=== PATIENT | male | born 1955 | race Caucasian/White ===

== ENCOUNTER 2025-04-16 07:41 | Emergency (ER) | payer OTHER ==
--- OUTSIDE RECORDS SUMMARY | 2025-04-16 07:53 | XMS REPORT | Continuity of Care Document ---
Author Name Unknown Address [address] [facility] [address] [place] [address] [facility] [place] Address [address] [facility] [address] [place] [address] Care Team Providers Care [place]orman Name Role Phone Niya Haywood Primary Care Physician + [phone] NIYA MCHUGH Attending Clinician Unavailable Niya Haywood Attending Clinician [phone] Po, [facility] Main Attending Clinician Lacey Lira MD Attending Clinician [phone] LACEY ESTEVES Attending Clinician UnavailFABIOLA Medina Attending Clinician UnavailFABIOLA Medina Attending Clinician UnavailNas Sneed PA-C Attending Clinician [phone] NAS PETERSEN Attending Clinician Unavailable FERCHO LANG Attending Clinician Unavailable Fercho Lang DO Attending Clinician [phone] Fabiola Key MD Attending Clinician [phone] CHAD PITTMAN Attending Clinician Unavail CHAD Chapman Attending Clinician Unavail Chad Chapman MD Attending Clinician [phone] Niya Haywood Attending Clinician [phone] AUDREY FOY Attending Clinician Unavailable Moon MD, Wondiful A Attending Clinician [phone] RADIOLOGY Attending Clinician Unavailable Radiology Attending Clinician Unavailable YISSEL TAMAYO Attending Clinician Unavailab YISSEL Jose Attending Clinician Unavailab KOFI Concepcion Attending Clinician Unavailable Kofi Deras Attending Clinician [phone] Doctor Unassigned, [place] Attending Clinician U navailable WILFRIDO MUSTAFA Attending Clinician Unavaila ble Lab, Ang - Db Attending Clinician Unavailable Asia Castillo MA Attending Clinician Unavail able DOROTA KIM Attending Clinician Unavailable Riki Buckner Attending Clinician [phone] Dorota Kim MD Attending Clinician [phone] Lab, [facility] Pob I Attending Clinician Unavailab julio cesar Brown_P Attending Clinician Unavailable Conchis Gregory Attending Clinician [phone] Unique Driscoll MD Attending Clinician [phone] [facility] Attending Clinician Unavaila Peter Pena Attending Clinician [phone] FERCHO LANG Admitting Clinician Unavailable ALICIA JHAVERI Admitting Clinician Unavailable KOFI HERNANDEZ Admitting Clinician Unavailable WILFRIDO MUSTAFA Admitting Clinician Unavaila marti Brown_P Admitting Clinician Unavailable Payers Payer Name Policy Type Policy Number Effective Date Expirati on Date Source [facility] DUAL COMP HMO-POS D SNP [id number] 2022 00:00:[address] [facility] [id number] 2024 00:00:00 [employer] [id number] 2022 00:00:00 2022 00:00:00 [facility] [id number] 2022 00:00:00 Problems Condition Name Condition Details Condition Category Status Onset Date Resolution Date Last Treatment Date Treating Clinician Comments Source Bilateral edema of lower extremity Bilateral edema of lower extremity Disease Active 2023-09 1 00:00: 00 [facility] COPD (chronic obstructiv e pulmonary disease) COPD (chronic obstructiv e pulmonary disease) Disease Active 11-26 00:00: 00 [facility] Muscle cramps Muscle cramps Disease Active 11-26 00:00: 00 [facility] Vertigo Vertigo Disease Active 05-30 00:00: 00 [facility] Tremor Tremor Disease Active 05-30 00:00: 00 [facility] Decreased hearing, left Decreased hearing, left Disease Active 05-30 00:00: 00 [facility] Venous reflux, left lower extremity Venous reflux, left lower extremity Disease Active 03-20 00:00: 00 [facility] Anemia, unspecifie d type Anemia, unspecifie d type Disease Active 05-23 00:00: 00 [facility] Leukopenia , unspecifie d type Leukopenia , unspecifie d type Disease Active 05-23 00:00: 00 [facility] Memory disturbanc e Memory disturbanc e Disease Active 05-08 00:00: 00 [facility] Neck pain Neck pain Disease Active 12-11 00:00: 00 [facility] DDD (degenerat justina disc disease), cervical DDD (degenerat justina disc disease), cervical Disease Active 12-11 00:00: 00 [facility] Cervical spine arthritis Cervical spine arthritis Disease Active 12-11 00:00: 00 [facility] Arthritis Arthritis Disease Active 10-07 00:00: 00 [facility] Primary hypothyroi dism Primary hypothyroi dism Disease Active 2015-09 00:00: 00 [facility] Myalgia Myalgia Disease Active 2015-09 00:00: 00 [facility] Vitamin B12 deficiency Vitamin B12 deficiency Disease Resolve d 05-23 00:00: 00 2019-05-23 00:00:00 2019-05-23 22:01:47 Overview: Formattin g of this note might be different from the original. 05/29/2021 : REFUSES TO TAKE B12 SUPPLEMEN TATION [facility] History of thyrotoxic osis History of thyrotoxic osis Disease Resolve d 01-15 00:00: 00 2017-10-19 00:00:00 2022-03-24 00:24:28 [facility] Mass of left side of neck Mass of left side of neck Disease Resolve d 5 00:00: 00 2017-10-19 00:00:00 2017-10-19 17:08:40 [facility] Allergies, Adverse Reactions, Alerts Allergy Name Allergy Type Status Severity Reaction(s) Onset Date Inactive Date Treating Clinician Comments Source NO KNOWN ALLERGIE S Drug Class Active [facility] Family History Family Member Diagnosis Comments Start Date Stop Date Sourc e Other Other - see comments [facility] Social History Social Habit Start Date Stop Date Quantity Comments Source Sexual orientation [facility] History of tobacco use Current smoker [facility] Alcoholic beverage intake 2024-12-01 00:00:00 2024-12-01 00:00:00 Current non-drinker of alcohol (finding) [facility] History of Social function 2024-08-11 00:00:00 2024-08-11 00:00:00 [facility] Alcohol intake 2023-10-17 00:00:00 2023-10-17 00:00:00 Current non-drinker of alcohol (finding) [facility] Exposure to SARS-CoV-2 (event) 2022-12-28 00:00:00 2023-01-07 09:58:00 Not sure [facility] Tobacco use and exposure 2022-05-29 00:00:00 2022-05-29 00:00:00 Former smokeless tobacco user [facility] Tobacco Comment 2022-05-29 00:00:00 2022-05-29 00:00:00 only in childhood, quit at age 7yo [facility] Sex assigned at 1955 00:00:00 1955 00:00:00 [facility] Smoking Status Start Date Stop Date Source Ex-smoker 2022-05-29 00:00:00 2022-05-29 00:00:00 [facility] Medications Ordered Medication Name Filled Medication Name Start Date Stop Date Current Medication? Ordering Clinician Indication Dosage Frequency Signature (SIG) Comments Components Source albuterol-i pratropium (COMBIVENT RESPIMAT) 20-100 mcg/actuati on inhaler 2023-09 00:00: 00 Yes [id number] 1{puff} Inhale 1 Puff 4 (four) times daily as needed for Wheezing or Shortness of Breath. [facility] albuterol 2.5 mg /3 mL (0.083 %) nebulizer solution 2023-09 00:00: 00 Yes [id number] 2.5mg Inhale 3 mL every 4 (four) hours as needed for Wheezing or Shortness of Breath. [facility] cyclobenzap rine 10 mg tablet 2023-09 0 00:00: 00 Yes 10mg Take 1 tablet by mouth in the morning. [facility] ioflupane I 123 (DATSCAN) injection 5.2 millicurie 11-04 15:15: 00 11-04 15:15 :00 No [id number] 5.2mCi 5.2 millicurie , Intravenou s, ONCE, 1 dose, On Fri11/04/23 at 0915, Routine [facility] potassium iodide (SSKI) 1 gram/mL solution 0.1 mL 11-04 14:15: 00 11-04 14:10 :00 No [id number] 100mg 0.1 mL (100 mg), Oral, ONCE NOW, 1 dose, On Fri11/04/23 at 0815, Routine [facility] QUEtiapine (SEROQUEL) 25 mg tablet 2021-09 018 00:00: 00 Yes [id number] 25mg Take 1 tablet by mouth in the morning and 1 tablet in the evening. After 1 week take 2 PO BID. [facility] cyclobenzap rine 10 mg tablet 05-01 00:00: 00 05-29 00:00 :00 No [facility] IRON ORAL 3 09:04: 19 Yes Take by mouth. [facility] albuterol 2.5 mg /3 mL (0.083 %) nebulizer solution 11-26 00:00: 00 08-11 00:00 :00 No [id number] 2.5mg Inhale 3 mL every 4 (four) hours as needed for Wheezing or Shortness of Breath. [facility] albuterol-i pratropium (COMBIVENT RESPIMAT) 20-100 mcg/actuati on inhaler 11-26 00:00: 00 08-11 00:00 :00 No [id number] 1{puff} Inhale 1 Puff 4 (four) times daily as needed for Wheezing or Shortness of Breath. [facility] meclizine 12.5 mg tablet 05-30 00:00: 00 Yes [id number] 12.5mg Take 1 tablet by mouth 3 (three) times daily as needed for Dizziness. [facility] ibuprofen 600 mg tablet 01-22 00:00: 00 08-11 00:00 :00 No [facility] aspirin 81 mg chewable tablet 05-13 13:56: 56 Yes 81mg Take 1 tablet by mouth in the morning. [facility] HYDROcodone -acetaminop hen 10-325 mg tablet 05-13 13:56: 56 Yes 1{tbl} Take 1 tablet by mouth every 6 (six) hours as needed. [facility] losartan 100 mg tablet 05-13 13:56: 56 08-11 00:00 :00 No 100mg Take 1 tablet by mouth in the morning. [facility] Immunizations Ordered Immunization Name Filled Immunization Name Date Status Comments Source Pneumococcal 20 Conjugate, PCV20 (Prevnar 20) 2024-12-01 00:00:00 Completed [facility] Influenza, adjuvanted, trivalent, PF (FLUAD) 2024-06-11 00:00:00 Completed [facility] Influenza Virus Vaccine 2023-12-30 00:00:00 Completed [facility] SARS-COV-2 COVID-19 MODERNA 12+ YRS VACCINE 2023-12-30 00:00:00 Completed [facility] Pneumococcal Polysaccharide, PPSV23 (PNEUMOVAX) 2023-12-30 00:00:00 Completed [facility] TD, NOS 2023-12-30 00:00:00 Completed [facility] Influenza Virus Vaccine 2023-11-04 07:43:04 Completed [facility] SARS-COV-2 COVID-19 MODERNA 12+ YRS VACCINE 2023-11-04 07:43:04 Completed [facility] Pneumococcal Polysaccharide, PPSV23 (PNEUMOVAX) 2023-11-04 07:43:04 Completed [facility] TD, NOS 2023-11-04 07:43:04 Completed [facility] Influenza Virus Vaccine 2023-11-04 07:42:54 Completed [facility] SARS-COV-2 COVID-19 MODERNA 12+ YRS VACCINE 2023-11-04 07:42:54 Completed [facility] Pneumococcal Polysaccharide, PPSV23 (PNEUMOVAX) 2023-11-04 07:42:54 Completed [facility] TD, NOS 2023-11-04 07:42:54 Completed [facility] Influenza Virus Vaccine 2023-11-04 07:42:44 Completed [facility] SARS-COV-2 COVID-19 MODERNA 12+ YRS VACCINE 2023-11-04 07:42:44 Completed [facility] Pneumococcal Polysaccharide, PPSV23 (PNEUMOVAX) 2023-11-04 07:42:44 Completed [facility] TD, NOS 2023-11-04 07:42:44 Completed [facility] Influenza Virus Vaccine 2023-10-17 08:00:00 Completed [facility] SARS-COV-2 COVID-19 MODERNA 12+ YRS VACCINE 2023-10-17 08:00:00 Completed [facility] Pneumococcal Polysaccharide, PPSV23 (PNEUMOVAX) 2023-10-17 08:00:00 Completed [facility] TD, NOS 2023-10-17 08:00:00 Completed [facility] Influenza Virus Vaccine 2023-10-15 00:00:00 Completed [facility] SARS-COV-2 COVID-19 MODERNA 12+ YRS VACCINE 2023-10-15 00:00:00 Completed [facility] Pneumococcal Polysaccharide, PPSV23 (PNEUMOVAX) 2023-10-15 00:00:00 Completed [facility] TD, NOS 2023-10-15 00:00:00 Completed [facility] Influenza Virus Vaccine 2023-09-03 07:00:00 Completed [facility] Pneumococcal Polysaccharide, PPSV23 (PNEUMOVAX) 2023-09-03 07:00:00 Completed [facility] TD, NOS 2023-09-03 07:00:00 Completed [facility] SARS-COV-2 COVID-19 MODERNA 12+ YRS VACCINE 2023-09-03 07:00:00 Completed [facility] Influenza Virus Vaccine 2023-09-03 00:00:00 Completed [facility] SARS-COV-2 COVID-19 MODERNA 12+ YRS VACCINE 2023-09-03 00:00:00 Completed [facility] Pneumococcal Polysaccharide, PPSV23 (PNEUMOVAX) 2023-09-03 00:00:00 Completed [facility] TD, NOS 2023-09-03 00:00:00 Completed [facility] Influenza Virus Vaccine 2023-08-08 00:00:00 Completed [facility] SARS-COV-2 COVID-19 MODERNA 12+ YRS VACCINE 2023-08-08 00:00:00 Completed [facility] Pneumococcal Polysaccharide, PPSV23 (PNEUMOVAX) 2023-08-08 00:00:00 Completed [facility] TD, NOS 2023-08-08 00:00:00 Completed [facility] Td 2022-06-15 00:00:00 Completed [facility] TD, NOS 2022-06-15 00:00:00 Completed [facility] Td 2022-06-15 00:00:00 Completed [facility] TD, NOS 2022-06-15 00:00:00 Completed [facility] SARS-COV-2 COVID-19 VACCINE - (MODERNA) 2022-01-29 00:00:00 Completed Pneumococcal Polysaccharide, PPSV23 (PNEUMOVAX) 2021-11-26 00:00:00 Completed [facility] Pneumococcal Polysaccharide, PPSV23 (PNEUMOVAX) 2021-11-26 00:00:00 Completed [facility] Pneumococcal Polysaccharide, PPSV23 (PNEUMOVAX) 2021-11-26 00:00:00 Completed [facility] Pneumococcal Polysaccharide, PPSV23 (PNEUMOVAX) 2021-11-26 00:00:00 Completed [facility] Pneumococcal Polysaccharide, PPSV23 (PNEUMOVAX) 2021-11-26 00:00:00 Completed [facility] Pneumococcal Polysaccharide, PPSV23 (PNEUMOVAX) 2021-11-26 00:00:00 Completed [facility] Pneumococcal Polysaccharide, PPSV23 (PNEUMOVAX) 2021-11-26 00:00:00 Completed [facility] Pneumococcal Polysaccharide, PPSV23 (PNEUMOVAX) 2021-11-26 00:00:00 Completed [facility] SARS-COV-2 COVID-19 MODERNA 12+ YRS VACCINE 2021-07-11 00:00:00 Completed [facility] SARS-COV-2 COVID-19 MODERNA 12+ YRS VACCINE 2021-07-11 00:00:00 Completed [facility] SARS-COV-2 COVID-19 MODERNA 12+ YRS VACCINE 2021-07-11 00:00:00 Completed [facility] SARS-COV-2 COVID-19 MODERNA 12+ YRS VACCINE 2021-07-11 00:00:00 Completed [facility] SARS-COV-2 COVID-19 MODERNA 12+ YRS VACCINE 2021-07-11 00:00:00 Completed [facility] SARS-COV-2 COVID-19 MODERNA 12+ YRS VACCINE 2021-07-11 00:00:00 Completed [facility] SARS-COV-2 COVID-19 MODERNA 12+ YRS VACCINE 2021-07-11 00:00:00 Completed [facility] SARS-COV-2 COVID-19 MODERNA 12+ YRS VACCINE 2021-07-11 00:00:00 Completed [facility] SARS-COV-2 COVID-19 MODERNA 12+ YRS VACCINE 2020-12-20 00:00:00 Completed [facility] SARS-COV-2 COVID-19 MODERNA 12+ YRS VACCINE 2020-12-20 00:00:00 Completed [facility] SARS-COV-2 COVID-19 MODERNA 12+ YRS VACCINE 2020-12-20 00:00:00 Completed [facility] SARS-COV-2 COVID-19 MODERNA 12+ YRS VACCINE 2020-12-20 00:00:00 Completed [facility] SARS-COV-2 COVID-19 MODERNA 12+ YRS VACCINE 2020-12-20 00:00:00 Completed [facility] SARS-COV-2 COVID-19 MODERNA 12+ YRS VACCINE 2020-12-20 00:00:00 Completed [facility] SARS-COV-2 COVID-19 MODERNA 12+ YRS VACCINE 2020-12-20 00:00:00 Completed [facility] SARS-COV-2 COVID-19 MODERNA 12+ YRS VACCINE 2020-12-20 00:00:00 Completed [facility] SARS-COV-2 COVID-19 MODERNA 12+ YRS VACCINE 2020-11-24 00:00:00 Completed [facility] SARS-COV-2 COVID-19 MODERNA 12+ YRS VACCINE 2020-11-24 00:00:00 Completed [facility] SARS-COV-2 COVID-19 MODERNA 12+ YRS VACCINE 2020-11-24 00:00:00 Completed [facility] SARS-COV-2 COVID-19 MODERNA 12+ YRS VACCINE 2020-11-24 00:00:00 Completed [facility] SARS-COV-2 COVID-19 MODERNA 12+ YRS VACCINE 2020-11-24 00:00:00 Completed [facility] SARS-COV-2 COVID-19 MODERNA 12+ YRS VACCINE 2020-11-24 00:00:00 Completed [facility] SARS-COV-2 COVID-19 MODERNA 12+ YRS VACCINE 2020-11-24 00:00:00 Completed [facility] SARS-COV-2 COVID-19 MODERNA 12+ YRS VACCINE 2020-11-24 00:00:00 Completed [facility] Influenza Virus Vaccine 2019-08-10 00:00:00 Completed [facility] Influenza Virus Vaccine 2019-08-10 00:00:00 Completed [facility] Influenza Virus Vaccine 2019-08-10 00:00:00 Completed [facility] Influenza Virus Vaccine 2019-08-10 00:00:00 Completed [facility] Influenza Virus Vaccine 2019-08-10 00:00:00 Completed [facility] Influenza Virus Vaccine 2019-08-10 00:00:00 Completed [facility] Influenza Virus Vaccine 2019-08-10 00:00:00 Completed [facility] Influenza Virus Vaccine 2019-08-10 00:00:00 Completed [facility] Vital Signs Vital Name Observation Time Observation Value Comments S teresa Systolic blood pressure 2024-12-01 12:51:00 123 mm[Hg] [facility] Diastolic blood pressure 2024-12-01 12:51:00 76 mm[Hg] [facility] Heart rate 2024-12-01 12:51:00 65 /min [facility] Body height 2024-12-01 12:51:00 182.9 cm [facility] Body weight 2024-12-01 12:51:00 71.895 kg [facility] BMI 2024-12-01 12:51:00 21.50 kg/m2 [facility] Oxygen saturation in Arterial blood by Pulse oximetry 2024-12-01 12:51:00 100 /min [facility] Systolic blood pressure 2024-08-11 21:23:00 134 mm[Hg] [facility] Diastolic blood pressure 2024-08-11 21:23:00 86 mm[Hg] [facility] Heart rate 2024-08-11 21:23:00 85 /min [facility] Respiratory rate 2024-08-11 21:23:00 18 /min [facility] Body height 2024-08-11 21:23:00 182.9 cm [facility] Body weight 2024-08-11 21:23:00 74.571 kg [facility] BMI 2024-08-11 21:23:00 22.30 kg/m2 [facility] Oxygen saturation in Arterial blood by Pulse oximetry 2024-08-11 21:23:00 99 /min [facility] Systolic blood pressure 2024-07-16 14:08:00 133 mm[Hg] [facility] Diastolic blood pressure 2024-07-16 14:08:00 96 mm[Hg] [facility] Heart rate 2024-07-16 14:08:00 74 /min [facility] Body temperature 2024-07-16 14:06:00 37.11 Tammy [facility] Body height 2024-07-16 14:06:00 182.9 cm [facility] 2024-07-16 14:06:00 71.986 kg [facility] BMI 2024-07-16 14:06:00 21.52 kg/m2 [facility] in Arterial blood by Pulse oximetry 2024-07-16 14:06:00 99 /min [facility] Systolic blood pressure 2024-06-25 13:03:00 138 mm[Hg] [facility] Diastolic blood pressure 2024-06-25 13:03:00 90 mm[Hg] [facility] Heart rate 2024-06-25 13:03:00 73 /min [facility] Body temperature 2024-06-25 13:03:00 37 Tammy [facility] Respiratory rate 2024-06-25 13:03:00 20 /min [facility] Body height 2024-06-25 13:03:00 182.9 cm [facility] Body weight 2024-06-25 13:03:00 71.215 kg [facility] BMI 2024-06-25 13:03:00 21.29 kg/m2 [facility] Oxygen saturation in Arterial blood by Pulse oximetry 2024-06-25 13:03:00 98 /min [facility] Systolic blood pressure 2024-06-11 20:57:00 122 mm[Hg] [facility] Diastolic blood pressure 2024-06-11 20:57:00 80 mm[Hg] [facility] Heart rate 2024-06-11 20:57:00 74 /min [facility] Body height 2024-06-11 20:57:00 182.9 cm [facility] Body weight 2024-06-11 20:57:00 73.936 kg [facility] BMI 2024-06-11 20:57:00 22.11 kg/m2 [facility] Oxygen saturation in Arterial blood by Pulse oximetry 2024-06-11 20:57:00 97 /min [facility] Systolic blood pressure 2023-10-17 14:08:00 109 mm[Hg] [facility] Diastolic blood pressure 2023-10-17 14:08:00 69 mm[Hg] [facility] Heart rate 2023-10-17 14:08:00 61 /min [facility] Body height 2023-10-17 14:08:00 182.9 cm [facility] Body weight 2023-10-17 14:08:00 70.262 kg [facility] BMI 2023-10-17 14:08:00 21.01 kg/m2 [facility] Systolic blood pressure 2022-06-15 14:28:32 131 mm[Hg] [facility] Diastolic blood pressure 2022-06-15 14:28:32 77 mm[Hg] [facility] Heart rate 2022-06-15 14:28:32 94 [facility] Body temperature 2022-06-15 14:28:32 36.5 Tammy [facility] Respiratory rate 2022-06-15 14:28:32 18 /min [facility] Body height 2022-06-15 14:01:00 182.9 cm [facility] Body weight 2022-06-15 14:01:00 72.576 kg [facility] BMI 2022-06-15 14:01:00 21.70 kg/m2 [facility] Oxygen saturation in Arterial blood by Pulse oximetry 2022-06-15 14:01:00 100 /min [facility] Systolic blood pressure 2022-05-29 13:04:00 114 mm[Hg] [facility] Diastolic blood pressure 2022-05-29 13:04:00 72 mm[Hg] [facility] Heart rate 2022-05-29 13:04:00 86 /min [facility] Body temperature 2022-05-29 13:04:00 36.44 Tammy [facility] Body height 2022-05-29 13:04:00 182.9 cm [facility] Body weight 2022-05-29 13:04:00 72.666 kg [facility] BMI 2022-05-29 13:04:00 21.73 kg/m2 [facility] Oxygen saturation in Arterial blood by Pulse oximetry 2022-05-29 13:04:00 99 /min [facility] Systolic blood pressure 2024-08-11 21:23:00 134 mm[Hg] [facility] Diastolic blood pressure 2024-08-11 21:23:00 86 mm[Hg] [facility] Heart rate 2024-08-11 21:23:00 85 /min [facility] Respiratory rate 2024-08-11 21:23:00 18 /min [facility] Body height 2024-08-11 21:23:00 182.9 cm [facility] Body weight 2024-08-11 21:23:00 74.571 kg [facility] BMI 2024-08-11 21:23:00 22.30 kg/m2 [facility] Oxygen saturation in Arterial blood by Pulse oximetry 2024-08-11 21:23:00 99 /min [facility] Body temperature 2024-07-16 14:06:00 37.11 Tammy [facility] Systolic blood pressure 2022-06-15 14:28:32 131 mm[Hg] [facility] Diastolic blood pressure 2022-06-15 14:28:32 77 mm[Hg] [facility] Heart rate 2022-06-15 14:28:32 94 /min [facility] Body temperature 2022-06-15 14:28:32 36.5 Tammy [facility] Respiratory rate 2022-06-15 14:28:32 18 /min [facility] Body height 2022-06-15 14:01:00 182.9 cm [facility] Body weight 2022-06-15 14:01:00 72.576 kg [facility] BMI 2022-06-15 14:01:00 21.70 kg/m2 [facility] Oxygen saturation in Arterial blood by Pulse oximetry 2022-06-15 14:01:00 100 /min [facility] Procedures Procedure Date / Time Performed Performing Clinician Source COMP. METABOLIC PANEL ([id number]) 2024-12-07 14:09:00 Aleyda Jhaverineem [facility] CBC WITH DIFF 2024-12-07 14:09:00 Benja Alicia [facility] PNEUMOCOCCAL 20 CONJUGATE (PREVNAR 20) VACCINE 2024-12-01 12:58:07 Niya Mchugh [facility] VENOUS REFLUX DUPLEX BILATERAL - BY VASCULAR LAB 2024-07-26 14:57:00 Rickey [facility] VENOUS REFLUX DUPLEX BILATERAL - BY VASCULAR LAB 2024-07-26 14:57:00 Rickey [facility] LAB COLOGUARD COLON CANCER SCREEN 2024-07-23 13:00:00 Niya Mchugh [facility] FLU VACC([id number]),65+YR,0.5 ML,IM,ADJUVANTED,TIV(FLUA D) 2024-06-11 21:05:20 Niya Mchugh [facility] NM BRAIN SPECT (DATSCAN) 2023-11-04 19:30:00 Chad Pittman [facility] NM BRAIN SPECT (DATSCAN) 2023-11-04 19:30:00 Chad Pittman [facility] NM BRAIN SPECT (DATSCAN) 2023-11-04 19:30:00 Chad Pittman [facility] XR FOOT 3+ VW RIGHT 2022-06-15 14:34:00 Kofi Hernandez [facility] XR FOOT 3+ VW RIGHT 2022-06-15 14:34:00 Kofi Hernandez [facility] NOTICE OF PRIVACY PRACTICES 2022-06-15 13:57:42 Doctor Unassigned, [place] [facility] NOTICE OF PRIVACY PRACTICES 2022-06-15 13:57:42 Doctor Unassigned, [place] [facility] CONSENT/REFUSAL FOR DIAGNOSIS AND TREATMENT 2022-06-15 13:53:21 Doctor Unassigned, [place] [facility] CONSENT/REFUSAL FOR DIAGNOSIS AND TREATMENT 2022-06-15 13:53:21 Doctor Unassigned, [place] [facility] AGREEMENTS AUTHORIZATIONS AND IRREVOCABLE ASSIGNMENTS (FORM 2001) 2022-06-15 05:01:00 Doctor Unassigned, [place] [facility] CONSENT/REFUSAL FOR DIAGNOSIS AND TREATMENT 2022-04-18 12:56:33 Doctor Unassigned, [place] [facility] ASSIGNMENT OF BENEFITS 2022-04-18 12:56:14 Docto r Unassigned, [place] [facility] FECAL IMMUNOCHEMICAL TEST 2019-05-19 12:00:00 Wilfrido Mustafa [facility] HCV ANTIBODY 2019-05-11 19:25:00 Wilfrido Mustafa [facility] Encounters Start Date/Time End Date/Time Encounter Type Admission Type Attending [facility] Facility Care Department Encounter ID Source 2025-04-12 00:00:00 2025-04-15 15:58:30 Telephone Niya Mchugh [facility] MED[facility] 1.2.840.114 350.1.13.10 4.2.7.2.686 [id number] [facility] 2025-04-06 11:00:00 2025-04-06 11:00:00 Outpatient NIYA [facility] [id number] [facility] 2025-04-01 13:00:00 2025-04-01 13:00:00 Outpatient NIYA [facility] [id number] [facility] 2025-03-29 00:00:00 2025-03-30 11:29:27 Telephone Niya Mchugh [facility] 1.2.840.114 350.1.13.10 4.2.7.2.686 [id number] [facility] 2024-12-16 00:00:00 2024-12-16 00:00:00 Outpatient R NIYA MCHUGH [facility] [id number] [facility] 2024-12-16 00:00:00 2024-12-16 00:00:00 Outpatient R NIYA MCHUGH [facility] [id number] [facility] 2024-12-07 09:15:00 2024-12-07 09:30:00 Radar Engineer Visit Pob, Adc Lab Main Lacey Esteves, [facility] Main [facility] 1.2.840.114 350.1.13.10 4.2.7.2.686 [id number] [facility] 2024-12-07 09:15:00 2024-12-07 09:15:00 Outpatient [facility] [id number] [facility] 2024-12-01 07:30:00 2024-12-01 08:09:52 Outpatient R NIYA MCHUGH [facility] [id number] [facility] 2024-12-01 07:30:00 2024-12-01 08:09:52 Office Visit Niya Mchugh [facility] MED[facility] OFF[facility] BUILD[facility] 1.2.840.114 350.1.13.10 4.2.7.2.686 [id number] [facility] 2024-10-22 08:00:00 2024-10-22 08:00:00 Outpatient FABIOLA PERAZA [facility] [id number] [facility] 2024-08-11 15:30:00 2024-08-11 16:20:01 Office Visit Nas Petersen 1.2.840.1 33710.1.1 3.104.2.7 .3.111827 .8 [id number] [facility] 2024-08-11 07:00:00 2024-08-11 07:30:00 Office Visit Niya Mchugh Rosa 1.2.840.1 88619.1.1 3.104.2.7 .3.398124 .8 [id number] [facility] 2024-08-11 07:00:00 2024-08-11 07:00:00 Outpatient R NIYA MCHUGH [facility] [id number] [facility] 2024-08-11 00:00:00 2024-08-11 00:00:00 Travel 1.2.840.1 40848.1.1 3.104.2.7 .3.077318 .8 1.2.840.114 350.1.13.10 4.2.7.3.698 084.8 [id number] [facility] 2024-07-26 08:00:00 2024-07-26 23:59:00 Outpatient FERCHO [facility] [id number] [facility] 2024-07-26 08:00:00 2024-07-26 23:59:00 Hospital Encounter Fercho Lang 1.2.840.1 86760.1.1 3.104.2.7 .3.368739 .8 [id number] [facility] 2024-07-26 00:00:00 2024-07-26 00:00:00 Travel 1.2.840.1 88813.1.1 3.104.2.7 .3.457815 .8 1.2.840.114 350.1.13.10 4.2.7.3.698 084.8 [id number] [facility] 2024-07-22 15:30:00 2024-07-22 15:30:00 Outpatient R NIYA MCHUGH [facility] [id number] [facility] 2024-07-16 08:00:00 2024-07-16 08:34:50 Outpatient FABIOLA PERAZA [facility] [id number] [facility] 2024-07-16 08:00:00 2024-07-16 08:34:50 Office Visit Fabiola Key [facility] 1.114 350.1.13.10 4.2.7.2.686 [id number] [facility] 2024-07-09 08:00:00 2024-07-09 08:00:00 [facility] [id number] 2024-07-08 00:00:00 2024-07-08 15:28:27 Letter (Out) [facility] ([facility] 1..114 350.1.13.10 4.2.7.2.686 [id number] [facility] 2024-07-05 08:00:00 2024-07-05 08:00:00 Outpatient Ana [facility] [id number] [facility] 2024-06-25 08:00:00 2024-06-25 08:38:34 Outpatient Ana M RICKEY FERCHO [facility] [id number] [facility] 2024-06-25 08:00:00 2024-06-25 08:38:34 [facility] 1..114 350.1.13.10 4.2.7.2.686 [id number] [facility] 2024-06-11 16:00:00 2024-06-11 16:17:34 Outpatient NIYA [facility] [id number] [facility] 2024-06-11 16:00:00 2024-06-11 16:17:34 Office Visit Niya Mchugh [facility] [place] 1.84.114 350.1.13.10 4.2.7.2.686 [id number] [facility] 2024-02-06 14:20:00 2024-02-06 14:20:00 Outpatient CHAD [facility] [id number] [facility] 2023-12-30 00:00:00 2023-12-30 00:00:00 Telephone Chad Pittman [facility] 1..840.114 350.1.13.10 4.2.7.2.686 [id number] [facility] 2023-11-04 07:43:04 2023-11-04 23:59:00 Hospital Encounter Toya [facility] 1..840.114 350.1.13.10 4.2.7.2.686 [id number] [facility] 2023-11-04 07:42:54 2023-11-04 07:42:54 Hospital Encounter Toya [facility] 1.840.114 350.1.13.10 4.2.7.2.686 [id number] [facility] 2023-11-04 07:42:44 2023-11-04 07:42:44 Outpatient CHAD [facility] [id number] [facility] 2023-11-04 07:42:44 2023-11-04 07:42:44 Hospital Encounter Toya [facility] 1.840.114 350.1.13.10 4.2.7.2.686 [id number] [facility] 2023-10-17 08:00:00 2023-10-17 09:36:18 Outpatient CHAD [facility] [id number] [facility] 2023-10-17 08:00:00 2023-10-17 09:36:18 Office Visit Chad Pittman [facility] [place] 1.2.840.114 350.1.13.10 4.2.7.2.686 [id number] [facility] 2023-10-15 08:30:00 2023-10-15 08:30:00 Outpatient R NIYA MCHUGH [facility] [id number] [facility] 2023-10-15 00:00:00 2023-10-15 00:00:00 Telephone RubenBrentNiya Rosa [facility] [place] MED[facility] OFFICE BUILD[facility] 1.2.840.114 350.1.13.10 4.2.7.2.686 [id number] [facility] 2023-10-01 07:30:00 2023-10-01 07:30:00 Outpatient R NIYA MCHUGH [facility] [id number] [facility] 2023-09-30 09:20:00 2023-09-30 09:20:00 Outpatient R CHAD [facility] [id number] [facility] 2023-09-03 07:00:00 2023-09-03 07:30:00 Office Visit Ruben Niya A [facility] [place] MEDICAL OFFICE BUILD[facility] 1.2.840.114 350.1.13.10 4.2.7.2.686 [id number] [facility] 2023-09-03 07:00:00 2023-09-03 07:00:00 Outpatient R NIYA MCHUGH [facility] [id number] [facility] 2023-09-03 00:00:00 2023-09-03 00:00:00 Telephone Ruben Niya A [facility] [place] MEDICAL OFFICE BUILD[facility] 1.2.840.114 350.1.13.10 4.2.7.2.686 [id number] [facility] 2023-08-08 00:00:00 2023-08-08 00:00:00 Eli Wilfrido Mustafa A [facility] 1.2.840.114 350.1.13.10 4.2.7.2.686 [id number] [facility] 2023-01-10 13:50:24 2023-01-10 23:59:00 Outpatient R [facility]IOLOGY [facility] [id number] [facility] 2023-01-10 07:45:47 2023-01-10 23:59:00 Hospital Encounter Radiology [facility] 1.2.840.114 350.1.13.10 4.2.7.2.686 [id number] [facility] 2023-01-02 00:00:00 2023-01-02 00:00:00 Outpatient R RADIOLOGY [facility] [id number] [facility] 2022-11-28 07:00:00 2022-11-28 07:00:00 Outpatient R NIYA MCHUGH [facility] [id number] [facility] 2022-11-22 07:00:00 2022-11-22 07:00:00 Outpatient R NIYA MCHUGH [facility] [id number] [facility] 2022-11-13 12:30:00 2022-11-13 12:30:00 Outpatient R NIYA MCHUGH [facility] [id number] [facility] 2022-11-08 14:00:00 2022-11-08 14:00:00 Outpatient R YISSEL [facility]AR [facility] [id number] [facility] 2022-10-03 11:00:00 2022-10-03 11:00:00 Outpatient R YISSEL [facility] [id number] [facility] 2022-06-25 08:00:00 2022-06-25 08:33:41 Outpatient R CHAD [facility] [id number] [facility] 2022-06-25 08:00:00 2022-06-25 08:33:41 Office Visit Chad Pittman [facility] [place] 1.2840.114 350.1.13.10 4.2.7.2.686 [id number] [facility] 2022-06-25 00:00:00 2022-06-25 00:00:00 Travel 1.2.840.1 29081.1.1 3.104.2.7 .3.122465 .8 1.2.840.114 350.1.13.10 4.2.7.3.698 084.8 [id number] [facility] 2022-06-15 09:12:00 2022-06-15 11:04:00 Emergency X KOFI HERNANDEZ [facility] ERT [id number] [facility] 2022-06-15 09:12:00 2022-06-15 11:04:00 Emergency Kofi Hernandez S 1.2.840.1 51845.1.1 3.104.2.7 .3.955048 .8 [id number] [facility] 2022-06-15 00:00:00 2022-06-15 00:00:00 Orders Only Doctor Unassigned, [place] 1.2.840.1 99124.1.1 3.104.2.7 .3.515177 .8 [id number] [facility] 2022-06-15 00:00:00 2022-06-15 00:00:00 Travel 1.2.840.1 15094.1.1 3.104.2.7 .3.457586 .8 1.2.840.114 350.1.13.10 4.2.7.3.698 084.8 [id number] [facility] 2022-05-30 00:00:00 2022-05-30 00:00:00 Telephone Niya Mchugh 1.2.840.1 73810.1.1 3.104.2.7 .3.173425 .8 [id number] [facility] 2022-05-29 08:00:00 2022-05-29 10:20:35 Office Visit Niya Mchugh 1.2.840.1 33864.1.1 3.104.2.7 .3.439977 .8 [id number] [facility] 2022-05-29 08:00:00 2022-05-29 08:00:00 Outpatient R NIYA MCHUGH [facility] [id number] [facility] 2022-05-29 00:00:00 2022-05-29 00:00:00 Travel 1.2.840.1 72919.1.1 3.104.2.7 .3.001544 .8 1.2.840.114 350.1.13.10 4.2.7.3.698 084.8 [id number] [facility] 2022-05-22 00:00:00 2022-05-22 00:00:00 Travel 1.2.840.1 47742.1.1 3.104.2.7 .3.730925 .8 1.2.840.114 350.1.13.10 4.2.7.3.698 084.8 [id number] [facility] 2022-05-16 07:00:00 2022-05-16 07:30:00 Office Visit Niya Mchugh 1.2.840.1 99899.1.1 3.104.2.7 .3.667637 .8 [id number] [facility] 2022-05-16 07:00:00 2022-05-16 07:00:00 Outpatient R NIYA MCHUGH [facility] [id number] [facility] 2022-05-16 07:00:00 2022-05-16 07:00:00 Outpatient R NIYA MCHUGH [facility] [id number] [facility] 2022-05-16 00:00:00 2022-05-16 00:00:00 Travel 1.2.840.1 15978.1.1 3.104.2.7 .3.235602 .8 1.2.840.114 350.1.13.10 4.2.7.3.698 084.8 [id number] [facility] 2022-05-02 00:00:00 2022-05-02 00:00:00 Telephone Niya Mchugh 1.2.840.1 49112.1.1 3.104.2.7 .3.671350 .8 [id number] [facility] 2022-04-18 08:00:00 2022-04-18 08:30:00 Office Visit Niya Mchugh 1.2.840.1 74469.1.1 3.104.2.7 .3.503976 .8 [id number] [facility] 2022-04-18 08:00:00 2022-04-18 08:00:00 Outpatient R NIYA MCHUGH [facility] [id number] [facility] 2022-04-18 08:00:00 2022-04-18 08:00:00 Outpatient R NIYA MCHUGH [facility] [id number] [facility] 2022-04-18 08:00:00 2022-04-18 08:00:00 Outpatient R NIYA MCHUGH [facility] [id number] [facility] 2022-04-18 00:00:00 2022-04-18 00:00:00 Travel 1.2.840.1 14506.1.1 3.104.2.7 .3.663559 .8 1.2.840.114 350.1.13.10 4.2.7.3.698 084.8 [id number] [facility] 2022-04-18 00:00:00 2022-04-18 00:00:00 Orders Only Doctor Unassigned, [place] 1.840.1 87901.1.1 3.104.2.7 .3.847312 .8 [id number] [facility] 2022-02-25 08:00:00 2022-02-25 08:00:00 Outpatient [facility]AD [facility] [id number] [facility] 2021-12-03 00:00:00 2021-12-03 00:00:00 Case Management MoonWilfrido [facility] [place] MED[facility] OFF[facility] BU[facility] 1.840.114 350.1.13.10 4.2.7.2.686 [id number] [facility] 2021-11-29 09:15:00 2021-11-29 09:30:56 Outpatient R [facility] [id number] [facility] 2021-11-29 09:15:00 2021-11-29 09:30:00 Radar Engineer Visit Lab, Lance Mustafa Marelyful Rosa [facility] [place] BU[facility] 1.840.114 350.1.13.10 4.2.7.2.686 [id number] [facility] 2021-11-29 00:00:00 2021-11-29 00:00:00 Orders Only Doctor Unassigned, [place] [facility] .840.114 350.1.13.10 4.2.7.2.686 [id number] [facility] 2021-11-26 09:30:00 2021-11-26 09:45:00 Radar Engineer Visit Lab, Ang Michael Mustafa Marelyful A [facility] [place] MED[facility] OFF[facility] BUILD[facility] 1.114 350.1.13.10 4.2.7.2.686 [id number] [facility] 2021-11-26 08:30:00 2021-11-26 09:30:48 Office Visit Wilfrido Mustafa [facility] [place] 1.114 350.1.13.10 4.2.7.2.686 [id number] 044 [id number] [facility] 2021-11-26 09:30:00 2021-11-26 09:30:00 Outpatient R [facility]O [facility] [id number] [facility] 2021-06-20 00:00:00 2021-06-20 00:00:00 [facility] 1.84.114 350.1.13.10 4.2.7.2.686 [id number] [facility] 2021-06-18 08:00:00 2021-06-18 08:00:00 Outpatient [facility]AD [facility] [id number] [facility] 2021-06-11 08:00:00 2021-06-11 08:00:00 Outpatient [facility] [id number] [facility] 2021-05-30 00:00:00 2021-05-30 00:00:00 Case Management Asia Castillo ..114 350.1.13.10 4.2.7.2.686 [id number] [facility] 2021-05-29 11:50:01 2021-05-29 12:28:44 [facility] 1.84.114 350.1.13.10 4.2.7.2.686 [id number] [facility] 2021-05-29 11:45:00 2021-05-29 11:45:00 Outpatient [facility] [id number] [facility] 2021-05-29 00:00:00 2021-05-29 00:00:00 Orders Only Doctor Unassigned, [place] [facility] .2.840.114 350.1.13.10 4.2.7.2.686 [id number] [facility] 2021-05-28 08:15:00 2021-05-28 08:15:00 Outpatient [facility] [id number] [facility] 2021-04-19 10:30:00 2021-04-19 10:30:00 Outpatient D[facility]OTA [facility] [id number] [facility] 2021-04-19 10:30:00 2021-04-19 10:30:00 Outpatient D[facility]OTA [facility] [id number] [facility] 2021-03-22 10:30:00 2021-03-22 10:30:00 Outpatient D[facility]OTA [facility] [id number] [facility] 2021-03-21 00:00:00 2021-03-21 00:00:00 Telephone Chad Pittman [employer] [facility] 1.2.840.114 350.1.13.10 4.2.7.2.686 [id number] [facility] 2021-03-20 08:13:43 2021-03-20 23:59:00 Outpatient [facility]O [facility] [id number] [facility] 2021-03-20 08:13:43 2021-03-20 23:59:00 [facility] [id number] [facility] 2021-03-13 00:00:00 2021-03-13 00:00:00 Telephone Wilfrido Mustafa [facility] Office Building One 1.2.840.114 350.1.13.10 4.2.7.2.686 [id number] [facility] 2021-03-06 00:00:00 2021-03-06 00:00:00 Telephone Wilfrido Mustafa [facility] Office Building One 1.2.840.114 350.1.13.10 4.2.7.2.686 [id number] [facility] 2021-02-20 07:58:01 2021-02-20 23:59:00 Hospital Encounter Wilfrido Mustafa [facility] 1.2.840.114 350.1.13.10 4.2.7.2.686 [id number] [facility] 2021-02-20 07:57:39 2021-02-20 07:57:39 Hospital Encounter Wilfrido Mustafa [facility] 1.2.840.114 350.1.13.10 4.2.7.2.686 [id number] [facility] 2021-02-20 07:57:25 2021-02-20 07:57:25 Hospital Encounter Chad Pittman [facility] 1.2.840.114 350.1.13.10 4.2.7.2.686 [id number] [facility] 2021-02-20 00:00:00 2021-02-20 00:00:00 Outpatient [facility] [id number] [facility] 2021-02-09 15:05:09 2021-02-09 16:01:10 Office Visit Chad Pittman [facility] Building 1.2.840.114 350.1.13.10 4.2.7.2.686 [id number] [facility] 2021-02-09 15:00:00 2021-02-09 15:00:00 Outpatient [facility] [id number] [facility] 2021-02-01 14:46:23 2021-02-01 15:01:23 Office Visit Riki Clay [facility] 1..114 350.1.13.10 4.2.7.2.686 [id number] [facility] 2021-02-01 13:09:40 2021-02-01 14:06:24 Office Visit Dorota Kim [facility] 1.114 350.1.13.10 4.2.7.2.686 [id number] [facility] 2021-02-01 13:00:00 2021-02-01 14:06:24 Outpatient R DOROTA K[facility] [id number] [facility] 2021-02-01 13:00:00 2021-02-01 14:06:24 Outpatient R DROOTA KIM [facility] [id number] [facility] 2021-01-30 13:47:15 2021-01-30 14:07:15 Radar Engineer Visit Lab, Adc Fam Pob I Wilfrido Mustafa [facility] Office Building One .114 350.1.13.10 4.2.7.2.686 [id number] [facility] 2021-01-30 13:05:24 2021-01-30 13:48:52 Office Visit Wilfrido Mustafa [facility] Office Building One 1.114 350.1.13.10 4.2.7.2.686 [id number] [facility] 2021-01-30 13:00:00 2021-01-30 13:00:00 Outpatient Ana M [facility] [id number] [facility] 2021-01-30 00:00:00 2021-01-30 00:00:00 Orders Only Doctor Unassigned, [place] [facility] 1.0.114 350.1.13.10 4.2.7.2.686 [id number] [facility] 2019-11-30 14:32:54 2019-11-30 15:59:36 Telemedici ne [facility] 1.114 350.1.13.10 4.2.7.2.686 [id number] [facility] 2019-11-30 14:20:00 2019-11-30 14:20:00 Outpatient CHAD [facility]OHNSON [facility] [id number] [facility] 2019-05-21 13:00:00 2019-05-21 23:59:00 Hospital Encounter Conchis Fermin [facility] 1.114 350.1.13.10 4.2.7.2.686 [id number] [facility] 2019-05-21 00:00:00 2019-05-21 00:00:00 Orders Only Doctor Unassigned, [place] [facility] 1.114 350.1.13.10 4.2.7.2.686 [id number] [facility] 2019-05-19 09:31:39 2019-05-19 23:59:00 Hospital Encounter [facility] 1.114 350.1.13.10 4.2.7.2.686 [id number] [facility] 2019-05-13 13:47:18 2019-05-13 14:15:56 Office Visit Conchis Fermin [facility] 1.2.840.114 350.1.13.10 4.2.7.2.686 [id number] [facility] 2019-05-11 13:33:26 2019-05-11 14:23:56 Office Visit Wilfrido Mustafa [facility] 1.20.114 350.1.13.10 4.2.7.2.686 [id number] [facility] 2019-05-11 00:00:00 2019-05-11 00:00:00 Orders Only Doctor Unassigned, [place] [facility] 1.2840.114 350.1.13.10 4.2.7.2.686 [id number] [facility] 2019-05-05 12:29:22 2019-05-05 12:44:22 Radar Engineer Visit [facility] Sleep Lab Peter Gaxiola [facility] 1.2.840.114 350.1.13.10 4.2.7.2.686 [id number] [facility] 2019-05-05 00:00:00 2019-05-05 00:00:00 Orders Only Doctor Unassigned, [place] [facility] 1.2.840.114 350.1.13.10 4.2.7.2.686 [id number] [facility] 2019-04-27 13:33:26 2019-04-27 14:23:28 Office Visit Wilfrido Mustafa [facility] 1.2840.114 350.1.13.10 4.2.7.2.686 [id number] [facility] 2019-04-27 00:00:00 2019-04-27 00:00:00 Orders Only Doctor Unassigned, [place] [facility] 1.2.840.114 350.1.13.10 4.2.7.2.686 [id number] [facility] Results Test Description Test Time Test Comments Results Result Co mments Source [facility] with [id number] 14:28:03* Test Item Value Reference Range Interpretation Comme nts WBC (test code = 6690-2) 4.35 4.20-10.70 RBC (test code = 789-8) 3.59 4.26-5.52 L HGB (test code = 718-7) 12.5 g/dL 12.2-16.4 HCT (test code = 4544-3) 38.3 % 38.4-49.3 L MCV (test code = 787-2) 106.7 fL 81.7-95.6 H MCH (test code = 785-6) 34.8 pg 26.1-32.7 H MCHC (test code = 786-4) 32.6 g/dL 31.2-35.0 RDW-SD (test code = 82899-8) 50.5 fL 38.5-51.6 RDW-CV (test code = 788-0) 12.8 % 12.1-15.4 PLT (test code = 777-3) 209 150-328 MPV (test code = 48092-7) 9.1 fL 9.8-13.0 L NRBC/100 WBC (test code = 4523360662) 0.0 0.0-10.0 NRBC x10^3 (test code = 3374272126) See_Comment [Automated messa ge] The system which generated this result transmitted reference range: 10*3/?L. The reference range was not used to interpret this result as normal/abnormal. GRAN MAT (NEUT) % (test code = 770-8) 71.3 % IMM GRAN % (test code = 7849963665) 0.20 % LYMPH % (test code = 736-9) 18.9 % MONO % (test code = 5905-5) 7.1 % EOS % (test code = 713-8) 0.9 % BASO % (test code = 706-2) 1.6 % GRAN MAT x10^3(ANC) (test code = 1395912193) 3.10 10*3/uL 1.99-6.95 IMM GRAN x10^3 (test code = 6271031229) 0.00-0.06 LYMPH x10^3 (test code = 731-0) 0.82 10*3/uL 1.09-3.23 L MONO x10^3 (test code = 742-7) 0.31 10*3/uL 0.36-1.02 L EOS x10^3 (test code = 711-2) 0.04 10*3/uL 0.06-0.53 L BASO x10^3 (test code = 704-7) 0.07 10*3/uL 0.01-0.09 Lab Interpretation (test code = 68115-7) Abnormal [facility] Notes Date/Time Note Provider Source 2025-04-15 15:57:13 I did not prescribe keflex nor refill them. If patient is having concerns/symptoms recommend he be evaluated. He can do this at [facility] urgent care since going into the weekend and my schedule is full today. [facility] 2025-04-15 07:03:32 Copied from [facility] #[id number]. Topic: Clinical - Order >> Apr 15, 2025 7:01 AM Patient Service Establishment Attendant wrote: Donovan Lamas (69 year old male) is calling to request refill(s) for Cefalexin 250mg [facility] - [place], [place] - [address] [address] Marii Castanon [facility] 2025-04-14 14:39:17 Please review and advise Donovan Lamas is a 69 year old male is requesting a referral to: Dept: Cardiology Reason for Referral: regular check up / 6m fu Duration of problem: X10 years Internal / External referral: External Name of provider / location patient requesting: [facility] Dr. Kanu Peguero MD Fax Number: n/a Appt already scheduled?: yes If yes, Date of Appt: 04/26 [facility] 2025-04-12 11:19:41 Copied from [facility] #[id number]. Topic: Clinical - Referral >> Apr 12, 2025 11:16 AM Patient Service Establishment Attendant wrote: Donovan Lamas is a 69 year old male is requesting a referral to: Dept: Cardiology Reason for Referral: regular check up / 6m fu Duration of problem: X10 years Internal / External referral: External Name of provider / location patient requesting: [facility] Dr. Kanu Peguero MD Fax Number: n/a Appt already scheduled?: yes If yes, Date of Appt: 04/26 Merry Schumacher [facility] 2025-03-30 10:49:27 Spoke with the patient and informed him that no other providers have morning availability. He confirmed that he is fine with keeping his current appointment. Encounter can be closed Hailey Elder [facility] 2025-03-30 08:53:00 Please schedule patient for appt. Pamella Jackson LVN [facility] 2025-03-29 12:48:11 Copied from [facility] #[id number]. Topic: Appointment - Schedule Appointment >> Mar 29, 2025 12:41 PM Patient Service Establishment Attendant wrote: Patient Donovan Lamas called to schedule a hospital follow up appointment. Wanting an early 7:00am or 7:30am appt due to his work schedule. Stated whatever is the first appt of the day, he is wanting it as early as possible. PT was seen at [facility] for a fridge falling on him. He has stitches in bottom right leg. Please call back and advise. Rosalba Najera [facility] 2024-12-07 09:15:00 Images from the original note were not included. Venipuncture collection performed by clean technique on the left anticubitus. Total of 1 attempts were made. Slight pressure and a bandage/dressing were applied to the site(s). The patient experienced no complications. The following specimens were processed according to instructions and sent to [facility] laboratories per lab order on 11/10/24: LT BLUE SST 1 RED LAV 1 PPT DK GREEN (LiHep) DK GREEN (SodH) LOPEZ DK BLUE (K2) DK BLUE (S) ACD Blood Culture NIPT/NTD [facility] 2024-01-05 10:35:59 Called pt and let him know results per Dr. Pittman. Pt verbalized understanding and requested a f/u appt to discuss other sx - balance and hallucinations. Let him know neurology would be able to discuss balance, however he should f/u with PCP for hallucinations. Assisted pt in scheduling f/u appt to discuss balance problems. Deloris Perez LVN [facility] 2024-01-05 07:51:05 FINDINGS: Normal radiotracer uptake is identified in the striata bilaterally. IMPRESSION Findings not suggestive of neurodegenerative disease / Parkinsonian syndrome. Test negative, doesn't mean patient couldn't have Parkinson's but is more helpful if test is positive. [facility] 2023-12-30 15:01:34 Donovan Lamas is a 68 year old male Pt called because he said he had a brain scan done recently and would like a call back to go over the results. Please advise. Sylvester Chery [facility] 2023-10-17 16:11:21 Attempted to contact patient, no answer, left voicemail. NIO Massey RN [facility] 2023-10-16 10:44:47 Patient scheduled yesterday for an 8:30 am appointment. Looks like he signed in at 7:50 am and left (canceled sign in) at 8:20 am, 10 minutes before his 8:30 appointment. NIO WALSH-PHYSICIAN TAKER DOWN MIDLEVEL PROVIDER [facility] 2023-10-15 13:19:32 Please review NIO Blakely MA [facility] 2023-10-15 08:20:08 Donovan Lamas is a 68 year old male Pt called and stated that he was leaving due to the provider not seeing him in a timely manner. He is requesting a call from Ruben or he will be filing a complaint. Call him at [phone] NIO Ellis [facility] 2023-09-03 10:13:21 Please advise. NIO Flores RN [facility] 2023-09-03 08:47:27 Good morning, Are you able to assist with this please? Thank you, NIO De Leon [facility] 2023-09-03 08:10:59 Donovan Lamas is a 67 year old male Pt states he left his appointment at 7:05am because the Provider had not seen him. He wants a call back or message he states "Why she can't get to work on time" were his words [phone] (home) NIO Davis [facility]
[2025-04-16] MEDS ORDERED: CEFTRIAXONE 1000 MG/VIAL ONE (08:11)
--- NOTE | 2025-04-16 09:40 | RAD REPORT ---
EXAMINATION: XR Tib Fib Right CLINICAL INDICATION: Male, 69 years old. Swelling;Pain TECHNIQUE: 2 view radiograph of the right tibia and fibula were obtained. COMPARISON: 03/29/2025 FINDINGS: No acute fracture. Sclerosis along the lower aspect of the interosseous ligament, and remod eling periosteal reaction along the shaft of the fibula again seen. Anterolateral soft tissue defect with small linear density which may represent debris debris along the lower leg distally, with more pronounced soft tissue defect. No soft tissue gas. Other chronic findings including a corticated osseous lesion along the anterior margin of the tibial plateau, and a moderate calcaneal s pur. Soft tissue swelling about the ankle appears partially improved. IMPRESSION: Soft tissue defect along the anterolateral distal lower leg appears more pronounced than prior exam. No other acute findings.
--- NOTE | 2025-04-16 09:41 | ER ---
Nurse's Notes [facility] Name: Ag Lamas Age: 69 yrs Sex: Male : 1955 Arrival Date: 04/16/2025 Time: 07:41 Bed DX4 Private MD: Diagnosis: Leg Laceration/ Open wound of lower leg-Infected open wound;Disruption of wound, unspecified Presentation: 04/16 08:03 Chief complaint: Patient states: Came 1 week ago to have sutures removed and instructed jl7 to return in 1 week, laceration dehisced yesterday. Coronavirus screen: At this time, the client does not indicate any symptoms associated with coronavirus-19. Ebola Screen: No symptoms or risks identified at this time. Initial Sepsis Screen: Does the patient meet any 2 criteria? No. Patient's initial sepsis screen is negative. Does the patient have a suspected source of infection? No. Patient's initial sepsis screen is negative. Risk Assessment: Do you want to hurt yourself or someone else? Patient reports no desire to harm self or others. Onset of symptoms is unknown. Care prior to arrival: None. 08:03 Method Of Arrival: Ambulatory [facility] 08:03 Acuity: REMA 3 jl7 Triage Assessment: 08:08 General: Appears in no apparent distress. uncomfortable, Behavior is calm, cooperative, jl7 appropriate for age. Pain: Denies pain. Historical: - Allergies: 08:08 No Known Allergies; jl7 - Home Meds: 08:08 aspirin 81 mg Oral TbEC 1 tab once daily [Active]; Entresto oral [Active]; jl7 - PMHx: 08:08 Cancer; Hypertension; jl7 - PSHx: 08:08 pacemaker; jl7 - Immunization history:: Adult Immunizations up to date. - Social history:: Smoking status: Patient denies any tobacco usage or history of. Patient uses street drugs, marijuana. Screenin:10 [facility] ED Fall Risk Assessment (Adult) History of falling in the last 3 months, bp including since admission No falls in past 3 months (0 pts) Confusion or Disorientation No (0 pts) Intoxicated or Sedated No (0 pts) Impaired Gait No (0 pts) Mobility Assist Device Used No (0 pt) Altered Elimination No (0 pt) Score/Fall Risk Level 0 - 2 = Low Risk Oriented to surroundings. Abuse screen: Denies threats or abuse. Denies injuries from another. Nutritional screening: No deficits noted. Tuberculosis screening: No symptoms or risk factors identified. Assessment: 08:10 General: SEE TRIAGE NOTE. bp 09:00 Reassessment: No changes from previously documented assessment. Patient is alert, bp oriented x 3, equal unlabored respirations, skin warm/dry/pink. Pain: Complains of pain in right leg. Neuro: No deficits noted. Cardiovascular: No deficits noted. Respiratory: No deficits noted. GI: No signs and/or symptoms were reported involving the gastrointestinal system. : No signs and/or symptoms were reported regarding the genitourinary system. EENT: No deficits noted. Derm: RLE ERYTHEMA. Musculoskeletal: Swelling present in right leg and left leg. 09:40 Reassessment: PT DISCOVERED TO HAVE ELOPED WITHOUT NOTIFYING STAFF. PROVIDER NOTIFIED. bp 08 07:33 Reassessment: Pt returned 04/17/25 for discharge papers and prescriptions, instructions jl7 provided. Pt reports he has a call in to wound care to see the specialist next week. Pt verbalized understanding of medications and discharge instructions. Vital Signs: 08 08:03 BP 129 / 90; Pulse 62; Resp 17; Temp 97.6; Pulse Ox 100% ; Weight 70.31 kg; Height 6 jl7 ft. 0 in. ; Pain 0/10; 08:03 Body Mass Index 21.02 (70.31 kg, 182.88 cm) jl7 08:03 Pain Scale: Adult jl7 ED Course: 07:46 Patient arrived in ED. gl 07:54 Teddy Glover is Attending Physician. ci 07:54 Ghanshyam Butts, RN is Primary Nurse. bp 08:08 Triage completed. jl7 08:08 Arm band placed on right wrist. jl7 08:10 Patient has correct armband on for positive identification. bp 08:57 XRAY Tib Fib RIGHT In Process Unspecified. EDMS 08:57 XRAY Foot RIGHT 2 View In Process Unspecified. EDMS 09:40 No provider procedures requiring assistance completed. Patient did not have IV access bp during this emergency room visit. Administered Medications: 08:16 Drug: Rocephin (cefTRIAXone) IM 500 mg IM once Route: IM; Site: right vastus lateralis; bp Medication: 12:10 VIS not applicable for this client. jl7 Outcome: 10:01 Discharge ordered by . ci 12:09 Discharged to home ambulatory, jl7 12:09 Condition: stable 12:09 Discharge instructions given to pt left without instructions, called to return but has not returned at this time. Will provide discharge papers and prescriptions once he returns Prescriptions given X 2, 12:11 Patient left the ED. jl7 Signatures: Dispatcher [employer] EDMS Norma Stover RN RN jl7 Ghanshyam Butts RN RN bp Iheonunekwu, [facility] ci Reyna Brandt, Reg Reg gl
--- NOTE | 2025-04-16 09:41 | RAD REPORT ---
EXAMINATION: XR Foot Right 2 View CLINICAL INDICATION: Male, 69 years old. [facility] MAIN Pain;Smash injury;Swelling Bed Name: 6 TECHNIQUE: 04/11/2025 view radiographs of the left foot were obtained. COMPARISON: No prior exam. FINDINGS: No evidence of fracture or dislocation. Normal alignment. Small calcaneal spur. Mild degene rative changes of the midfoot. No soft tissue swelling the foot. . IMPRESSION: No acute or significant abnormalities. Mild degenerative changes.
--- NOTE | 2025-04-16 09:41 | EDPHYS ---
Physician Documentation [facility] Name: Ag Lamas Age: 69 yrs Sex: Male : 1955 Arrival Date: 04/16/2025 Time: 07:41 Bed DX4 Private MD: ED Physician Teddy Glover HPI: 04/16 08:53 This 69 yrs old Male presents to ER via Ambulatory with complaints of Suture Removal. ci 08:53 Patient is a 69-year-old female with PMH hypertension, cancer who presents to the ED ci for suture removal from an infected wound. Patient had stitches placed on 03/29/2025 after an object fell onto his leg. Patient reports he was seen in the ER a few days ago for suture removal and was told stitches were not due to be removed. Patient reports wound was closed until last night when it burst open, reports he has restless leg syndrome and may have accidentally scratched wound. Patient endorses compliance with the cephalexin and topical antibiotics he was discharged on.. Historical: - Allergies: 08:08 No Known Allergies; jl7 - Home Meds: 08:08 aspirin 81 mg Oral TbEC 1 tab once daily [Active]; Entresto oral [Active]; jl7 - PMHx: 08:08 Cancer; Hypertension; jl7 - PSHx: 08:08 pacemaker; jl7 - Immunization history:: Adult Immunizations up to date. - Social history:: Smoking status: Patient denies any tobacco usage or history of. Patient uses street drugs, marijuana. ROS: 08:53 Constitutional: Negative for fever, chills, and weight loss, Cardiovascular: Negative ci for chest pain, palpitations, and edema, Respiratory: Negative for shortness of breath, cough, wheezing, and pleuritic chest pain, 08:53 MS/extremity: Positive for laceration, tenderness, 08:53 Skin: Positive for ulceration, Exam: 08:53 Constitutional: This is a well developed, well nourished patient who is awake, alert, ci and in no acute distress. Cardiovascular: Regular rate and rhythm with a normal S1 and S2. No gallops, murmurs, or rubs. Normal PMI, no JVD. No pulse deficits. Respiratory: Lungs have equal breath sounds bilaterally, clear to auscultation and percussion. No rales, rhonchi or wheezes noted. No increased work of breathing, no retractions or nasal flaring. Abdomen/GI: Soft, non-tender, with normal bowel sounds. No distension or tympany. No guarding or rebound. No evidence of tenderness throughout. 08:53 Skin: Wound recheck: Suture laceration closure: mild erythema, moderate drainage, marked dehiscence, Vital Signs: 08:03 BP 129 / 90; Pulse 62; Resp 17; Temp 97.6; Pulse Ox 100% ; Weight 70.31 kg; Height 6 jl7 ft. 0 in. ; Pain 0/10; 08:03 Body Mass Index 21.02 (70.31 kg, 182.88 cm) [facility] 08:03 Pain Scale: Adult jl7 Procedures: 08:53 Suture/Staple removal: Removed 17 sutures, from right leg, site appears gaping, dressed ci with Patient tolerated well. MDM: 07:54 Medical Screening Exam initiated ci 08:53 Data reviewed: vital signs, nurses notes. Special discussion: Based on the history and ci exam findings, there is no indication for further emergent testing or inpatient evaluation. Discussed infected wound and need for wound care, I have asked the patient/guardian to return tomorrow morning for re-evaluation of the patient's condition. ED course: Patient presents with infected wound to right distal tib-fib and wound to right foot. Sutures placed on 03/29/2025, 17 sutures removed, started on Rocephin will DC with Bactrim and Keflex. Given referral to wound care. Patient afebrile, normotensive with no evidence of sepsis at this time. X-ray right tib-fib does not show soft tissue gas, no evidence of osteomyelitis.. 09:39 ED course: X-ray tib-fib and foot pending. Informed by nurse that patient eloped from ci the ER. Attempts were made to fly patient, unsuccessful.. 04/16 08:04 Order name: XRAY Tib Fib RIGHT; Complete Time: 09:49 ci 04/16 08:04 Order name: XRAY Foot RIGHT 2 View; Complete Time: 09:49 ci 08 09:03 Interpretation: Abnormal. ci Administered Medications: 08:16 Drug: Rocephin (cefTRIAXone) IM 500 mg IM once Route: IM; Site: right vastus lateralis; bp Disposition Summary: 04/16/25 10:01 Discharge Ordered Notes: Location: Home ci Condition: Stable(04/16/25 10:01) ci Diagnosis - Disruption of wound, unspecified(04/16/25 10:01) ci - Leg Laceration/ Open wound of lower leg - Infected open wound(04/16/25 10:03) ci Followup: ci - With: Private Physician - When: 1 - 2 days - Reason: Wound Recheck, Recheck today's complaints, Re-evaluation by your physician Discharge Instructions: - Discharge Summary Sheet ci - Laceration Care, Adult, [id number] ci Forms: - Medication Reconciliation Form ci - Antibiotic Education ci - Prescription Opioid Use ci - Patient Portal Instructions ci - Leadership Thank You Letter ci Prescriptions: - Cephalexin 500 mg Oral Capsule - take 1 capsule ORAL route every 8 hours for 10 days; 30 capsule; Refills: 0, ci Product Selection Permitted - Bactrim DS 800-160 mg Oral Tablet - take 1 tablet ORAL route every 12 hours for 7 days; 14 tablet; Refills: 0, ci Product Selection Permitted Signatures: Dispatcher [employer] EDMS Norma Stover RN RN jl7 Ghanshyam Butts RN RN bp Teddy Glover Corrections: (The following items were deleted from the chart) 08:04 08:04 Tib Fib Right+RAD.RAD.BRZ ordered. EDMS EDMS 08:04 08:04 Foot Right 2 View+RAD.RAD.BRZ ordered. EDMO EDMS 09:03 08:53 Patient is a 69-year-old female with PMH hypertension, cancer who presents to the ED for suture removal from an infected wound. Patient had 18 stitches placed on 03/29/2025 after an object fell onto his leg. Patient reports he was seen in the ER a few days ago for suture removal and was told stitches were due to be removed. Patient reports wound was closed until last night when it burst open, reports he has restless leg syndrome and may have accidentally scratched wood. Patient endorses compliance with the cephalexin and topical antibiotics he was discharged on.. ci 09:05 08:53 ED course: Patient presents with infected wound to right distal tib-fib and wound ci to right foot. Sutures placed on 03/29/2025, sutures removed, started on Rocephin will DC with Bactrim and Keflex. Given referral to wound care. Patient afebrile, normotensive with no evidence of sepsis at this time. X-ray right tib-fib does not show soft tissue gas, no evidence of osteomyelitis.. ci 09:05 08:53 Suture/Staple removal: Removed 18 sutures, from right leg, site appears gaping, ci dressed with Patient tolerated well, ci 10:00 09:40 after being seen by provider ci ci 10:00 09:40 unknown ci ci 10:00 09:40 Stable ci ci 10:00 09:40 Leg Laceration/ Open wound of lower leg ci ci 10:00 09:51 Disruption of wound, unspecified ci ci 10:03 10:01 Leg Laceration/ Open wound of lower leg ci ci
[2025-04-16 12:18] VITALS: BP 129/90; TEMP 97.6; O2SAT 100
== END 2025-04-16 12:11 | disposition home or self-care (01) ==
LOC: ER 07:41
DX: T81.30XA Disruption of wound, unspecified, initial encounter (principal); L08.9 Local infection of the skin and subcutaneous tissue, unspecified; Z48.02 Encounter for removal of sutures
CPT/HCPCS: 73620; 73590; 96372; 99284; J0696

== ENCOUNTER 2025-04-21 10:15 | Inpatient (IN) | payer OTHER ==
--- OUTSIDE RECORDS SUMMARY | 2025-04-21 10:22 | XMS REPORT | Continuity of Care Document ---
Author Name Unknown Address [address] [place] [address] [facility] Address [address] [place] [address] Care Team Providers Care Electronics Engineering Professor Name Role Phone Niya Haywood Primary Care Physician + [phone] NIYA MIRANDA Attending Clinician Unavailable Niya Haywood Attending Clinician [phone] Po, [facility] Main Attending Clinician UnavailLacey Do MD Attending Clinician [phone] LACEY PÉREZ Attending Clinician UnavailFABIOLA Medina Attending Clinician UnavailFABIOLA Medina Attending Clinician UnavailNas Sneed PA-C Attending Clinician [phone] NAS DELGADO Attending Clinician Unavailable FERCHO LANG Attending Clinician Unavailable Fercho Lang DO Attending Clinician [phone] Fabiola Key MD Attending Clinician [phone] CHAD MENA Attending Clinician Unavail CHAD Chapman Attending Clinician Unavail Chad Chapman MD Attending Clinician [phone] Niya Haywood Attending Clinician [phone] AUDREY FOY Attending Clinician Unavailable Wilfrido Mustafa MD Attending Clinician RADIOLOGY Attending Clinician Unavailable Radiology Attending Clinician Unavailable YISSEL TAMAYO Attending Clinician Unavailab YISSEL Jose Attending Clinician Unavailab KOFI Concepcion Attending Clinician Unavailable Kofi Deras Attending Clinician [phone] Doctor Unassigned, [place] Attending Clinician U navailWILFRIDO Chopra Attending Clinician Unavaila ble Lab, Ang - Db Attending Clinician Unavailable Asia Castillo MA Attending Clinician Unavail able DOROTA KIM Attending Clinician Unavailable Riki Buckner Attending Clinician [phone] Dorota Kim MD Attending Clinician [phone] Lab, [facility]ob I Attending Clinician Unavailab julio cesar Brown_P Attending Clinician Unavailable Conchis Gregory Attending Clinician [phone] Unique Driscoll MD Attending Clinician [facility] Attending Clinician Unavaila Peter Pena Attending Clinician [phone] FERCHO LANG Admitting Clinician Unavailable ALICIA YOUSIF Admitting Clinician Unavailable KOFI YANG Admitting Clinician Unavailable WILFRIDO MUSTAFA Admitting Clinician Unavaila marti Brown_P Admitting Clinician Unavailable Payers Payer Name Policy Type Policy Number Effective Date Expirati on Date Source [facility] DUAL COMP HMO-POS D SNP [id number] 2022 00:00:00 [facility] STAR [id number] 2024 00:00:00 [employer] [id number] 2022 00:00:00 2022 00:00:00 [facility] [id number] 2022 00:00:00 Problems Condition Name Condition Details Condition Category Status Onset Date Resolution Date Last Treatment Date Treating Clinician Comments Source Bilateral edema of lower extremity Bilateral edema of lower extremity Disease Active 2023-09 1 00:00: 00 [facility] COPD (chronic obstructiv e pulmonary disease) COPD (chronic obstructiv e pulmonary disease) Disease Active 11-26 00:00: 00 [facility] Muscle cramps Muscle cramps Disease Active 11-26 00:00: 00 [facility] Vertigo Vertigo Disease Active 05-30 00:00: 00 [facility] Tremor Tremor Disease Active 05-30 00:00: 00 [facility] Decreased hearing, left Decreased hearing, left Disease Active 05-30 00:00: 00 [facility] Venous reflux, left lower extremity Venous reflux, left lower extremity Disease Active 03-20 00:00: 00 [facility] Anemia, unspecifie d type Anemia, unspecifie d type Disease Active 05-23 00:00: 00 [facility] Leukopenia , unspecifie d type Leukopenia , unspecifie d type Disease Active 05-23 00:00: 00 [facility] Memory disturbanc e Memory disturbanc e Disease Active 05-08 00:00: 00 [facility] Neck pain Neck pain Disease Active 12-11 00:00: 00 [facility] DDD (degenerat justina disc disease), cervical DDD (degenerat justina disc disease), cervical Disease Active 12-11 00:00: 00 [facility] Cervical spine arthritis Cervical spine arthritis Disease Active 12-11 00:00: 00 [facility] Arthritis Arthritis Disease Active 10-07 00:00: 00 [facility] Primary hypothyroi dism Primary hypothyroi dism Disease Active 2015-09 00:00: 00 [facility] Myalgia Myalgia Disease Active 2015-09 00:00: 00 [facility] Vitamin B12 deficiency Vitamin B12 deficiency Disease Resolve d 05-23 00:00: 00 2019-05-23 00:00:00 2019-05-23 22:01:47 Overview: Formattin g of this note might be different from the original. 05/29/2021 : REFUSES TO TAKE B12 SUPPLEMEN TATION [facility] History of thyrotoxic osis History of thyrotoxic osis Disease Resolve d 01-15 00:00: 00 2017-10-19 00:00:00 2022-03-24 00:24:28 [facility] Mass of left side of neck Mass of left side of neck Disease Resolve d 01-15 00:00: 00 2017-10-19 00:00:00 2017-10-19 17:08:40 [facility] Allergies, Adverse Reactions, Alerts Allergy Name Allergy Type Status Severity Reaction(s) Onset Date Inactive Date Treating Clinician Comments Source NO KNOWN ALLERGIE S Drug Class Active [facility] Family History Family Member Diagnosis Comments Start Date Stop Date Sourc e Other Other - see comments [facility] Social History Social Habit Start Date Stop Date Quantity Comments Source Sexual orientation [facility] History of tobacco use Current smoker [facility] Alcoholic beverage intake 2024-12-01 00:00:00 2024-12-01 00:00:00 Current non-drinker of alcohol (finding) [facility] History of Social function 2024-08-11 00:00:00 2024-08-11 00:00:00 [facility] Alcohol intake 2023-10-17 00:00:00 2023-10-17 00:00:00 Current non-drinker of alcohol (finding) [facility] Exposure to SARS-CoV-2 (event) 2022-12-28 00:00:00 2023-01-07 09:58:[address] [facility] Tobacco use and exposure 2022-05-29 00:00:00 2022-05-29 00:00:00 Former smokeless tobacco user [facility] Tobacco Comment 2022-05-29 00:00:00 2022-05-29 00:00:00 only in childhood, quit at age 7[address] [facility] Sex assigned at 1955 00:00:00 1955 00:00:00 [facility] Smoking Status Start Date Stop Date Source Ex-smoker 2022-05-29 00:00:00 2022-05-29 00:00:00 [facility] Medications Ordered Medication Name Filled Medication Name Start Date Stop Date Current Medication? Ordering Clinician Indication Dosage Frequency Signature (SIG) Comments Components Source albuterol-i pratropium (COMBIVENT RESPIMAT) 20-100 mcg/actuati on inhaler 2023-09 00:00: 00 Yes [id number] 1{puff} Inhale 1 Puff 4 (four) times daily as needed for Wheezing or Shortness of Breath. [facility] albuterol 2.5 mg /3 mL (0.083 %) nebulizer solution 2023-09 00:00: 00 Yes [id number] 2.5mg Inhale 3 mL every 4 (four) hours as needed for Wheezing or Shortness of Breath. [facility] cyclobenzap rine 10 mg tablet 2023-09 0 00:00: 00 Yes 10mg Take 1 tablet by mouth in the morning. [facility] ioflupane I 123 (DATSCAN) injection 5.2 millicurie 11-04 15:15: 00 11-04 15:15 :00 No [id number] 5.2mCi 5.2 millicurie , Intravenou s, ONCE, 1 dose, On Fri11/04/23 at 0915, Routine [facility] potassium iodide (SSKI) 1 gram/mL solution 0.1 mL 11-04 14:15: 00 11-04 14:10 :00 No [id number] 100mg 0.1 mL (100 mg), Oral, ONCE NOW, 1 dose, On Fri11/04/23 at 0815, Routine [facility] QUEtiapine (SEROQUEL) 25 mg tablet 2021-09 018 00:00: 00 Yes [id number] 25mg Take 1 tablet by mouth in the morning and 1 tablet in the evening. After 1 week take 2 PO BID. [facility] cyclobenzap rine 10 mg tablet 05-01 00:00: 00 05-29 00:00 :00 No [facility] IRON ORAL 3 09:04: 19 Yes Take by mouth. [facility] albuterol 2.5 mg /3 mL (0.083 %) nebulizer solution 11-26 00:00: 00 08-11 00:00 :00 No [id number] 2.5mg Inhale 3 mL every 4 (four) hours as needed for Wheezing or Shortness of Breath. [facility] albuterol-i pratropium (COMBIVENT RESPIMAT) 20-100 mcg/actuati on inhaler 11-26 00:00: 00 08-11 00:00 :00 No [id number] 1{puff} Inhale 1 Puff 4 (four) times daily as needed for Wheezing or Shortness of Breath. [facility] meclizine 12.5 mg tablet 05-30 00:00: 00 Yes [id number] 12.5mg Take 1 tablet by mouth 3 (three) times daily as needed for Dizziness. [facility] ibuprofen 600 mg tablet 01-22 00:00: 00 08-11 00:00 :00 No [facility] aspirin 81 mg chewable tablet 05-13 13:56: 56 Yes 81mg Take 1 tablet by mouth in the morning. [facility] HYDROcodone -acetaminop hen 10-325 mg tablet 05-13 13:56: 56 Yes 1{tbl} Take 1 tablet by mouth every 6 (six) hours as needed. [facility] losartan 100 mg tablet 05-13 13:56: 56 08-11 00:00 :00 No 100mg Take 1 tablet by mouth in the morning. [facility] Immunizations Ordered Immunization Name Filled Immunization Name Date Status Comments Source Pneumococcal 20 Conjugate, PCV20 (Prevnar 20) 2024-12-01 00:00:[address] [facility] Influenza, adjuvanted, trivalent, PF (FLUAD) 2024-06-11 00:00:[address] [facility] Influenza Virus Vaccine 2023-12-30 00:00:[address] [facility] SARS-COV-2 COVID-19 MODERNA 12+ YRS VACCINE 2023-12-30 00:00:[address] [facility] Pneumococcal Polysaccharide, PPSV23 (PNEUMOVAX) 2023-12-30 00:00:[address] [facility] TD, NOS 2023-12-30 00:00:[address] [facility] Influenza Virus Vaccine 2023-11-04 07:43:[address] [facility] SARS-COV-2 COVID-19 MODERNA 12+ YRS VACCINE 2023-11-04 07:43:[address] [facility] Pneumococcal Polysaccharide, PPSV23 (PNEUMOVAX) 2023-11-04 07:43:[address] [facility] TD, NOS 2023-11-04 07:43:[address] [facility] Influenza Virus Vaccine 2023-11-04 07:42:[address] [facility] SARS-COV-2 COVID-19 MODERNA 12+ YRS VACCINE 2023-11-04 07:42:[address] [facility] Pneumococcal Polysaccharide, PPSV23 (PNEUMOVAX) 2023-11-04 07:42:[address] [facility] TD, NOS 2023-11-04 07:42:[address] [facility] Influenza Virus Vaccine 2023-11-04 07:42:[address] [facility] SARS-COV-2 COVID-19 MODERNA 12+ YRS VACCINE 2023-11-04 07:42:[address] [facility] Pneumococcal Polysaccharide, PPSV23 (PNEUMOVAX) 2023-11-04 07:42:[address] [facility] TD, NOS 2023-11-04 07:42:[address] [facility] Influenza Virus Vaccine 2023-10-17 08:00:[address] [facility] SARS-COV-2 COVID-19 MODERNA 12+ YRS VACCINE 2023-10-17 08:00:[address] [facility] Pneumococcal Polysaccharide, PPSV23 (PNEUMOVAX) 2023-10-17 08:00:[address] [facility] TD, NOS 2023-10-17 08:00:[address] [facility] Influenza Virus Vaccine 2023-10-15 00:00:[address] [facility] SARS-COV-2 COVID-19 MODERNA 12+ YRS VACCINE 2023-10-15 00:00:[address] [facility] Pneumococcal Polysaccharide, PPSV23 (PNEUMOVAX) 2023-10-15 00:00:[address] [facility] TD, NOS 2023-10-15 00:00:[address] [facility] Influenza Virus Vaccine 2023-09-03 07:00:[address] [facility] Pneumococcal Polysaccharide, PPSV23 (PNEUMOVAX) 2023-09-03 07:00:[address] [facility] TD, NOS 2023-09-03 07:00:[address] [facility] SARS-COV-2 COVID-19 MODERNA 12+ YRS VACCINE 2023-09-03 07:00:[address] [facility] Influenza Virus Vaccine 2023-09-03 00:00:[address] [facility] SARS-COV-2 COVID-19 MODERNA 12+ YRS VACCINE 2023-09-03 00:00:[address] [facility] Pneumococcal Polysaccharide, PPSV23 (PNEUMOVAX) 2023-09-03 00:00:[address] [facility] TD, NOS 2023-09-03 00:00:[address] [facility] Influenza Virus Vaccine 2023-08-08 00:00:[address] [facility] SARS-COV-2 COVID-19 MODERNA 12+ YRS VACCINE 2023-08-08 00:00:[address] [facility] Pneumococcal Polysaccharide, PPSV23 (PNEUMOVAX) 2023-08-08 00:00:[address] [facility] TD, NOS 2023-08-08 00:00:[address] [facility] Td 2022-06-15 00:00:[address] [facility] TD, NOS 2022-06-15 00:00:[address] [facility] Td 2022-06-15 00:00:[address] [facility] TD, NOS 2022-06-15 00:00:[address] [facility] SARS-COV-2 COVID-19 VACCINE - (MODERNA) 2022-01-29 00:00:00 Completed Pneumococcal Polysaccharide, PPSV23 (PNEUMOVAX) 2021-11-26 00:00:[address] [facility] Pneumococcal Polysaccharide, PPSV23 (PNEUMOVAX) 2021-11-26 00:00:[address] [facility] Pneumococcal Polysaccharide, PPSV23 (PNEUMOVAX) 2021-11-26 00:00:[address] [facility] Pneumococcal Polysaccharide, PPSV23 (PNEUMOVAX) 2021-11-26 00:00:[address] [facility] Pneumococcal Polysaccharide, PPSV23 (PNEUMOVAX) 2021-11-26 00:00:[address] [facility] Pneumococcal Polysaccharide, PPSV23 (PNEUMOVAX) 2021-11-26 00:00:[address] [facility] Pneumococcal Polysaccharide, PPSV23 (PNEUMOVAX) 2021-11-26 00:00:[address] [facility] Pneumococcal Polysaccharide, PPSV23 (PNEUMOVAX) 2021-11-26 00:00:[address] [facility] SARS-COV-2 COVID-19 MODERNA 12+ YRS VACCINE 2021-07-11 00:00:[address] [facility] SARS-COV-2 COVID-19 MODERNA 12+ YRS VACCINE 2021-07-11 00:00:[address] [facility] SARS-COV-2 COVID-19 MODERNA 12+ YRS VACCINE 2021-07-11 00:00:[address] [facility] SARS-COV-2 COVID-19 MODERNA 12+ YRS VACCINE 2021-07-11 00:00:[address] [facility] SARS-COV-2 COVID-19 MODERNA 12+ YRS VACCINE 2021-07-11 00:00:[address] [facility] SARS-COV-2 COVID-19 MODERNA 12+ YRS VACCINE 2021-07-11 00:00:[address] [facility] SARS-COV-2 COVID-19 MODERNA 12+ YRS VACCINE 2021-07-11 00:00:[address] [facility] SARS-COV-2 COVID-19 MODERNA 12+ YRS VACCINE 2021-07-11 00:00:[address] [facility] SARS-COV-2 COVID-19 MODERNA 12+ YRS VACCINE 2020-12-20 00:00:[address] [facility] SARS-COV-2 COVID-19 MODERNA 12+ YRS VACCINE 2020-12-20 00:00:[address] [facility] SARS-COV-2 COVID-19 MODERNA 12+ YRS VACCINE 2020-12-20 00:00:[address] [facility] SARS-COV-2 COVID-19 MODERNA 12+ YRS VACCINE 2020-12-20 00:00:[address] [facility] SARS-COV-2 COVID-19 MODERNA 12+ YRS VACCINE 2020-12-20 00:00:[address] [facility] SARS-COV-2 COVID-19 MODERNA 12+ YRS VACCINE 2020-12-20 00:00:[address] [facility] SARS-COV-2 COVID-19 MODERNA 12+ YRS VACCINE 2020-12-20 00:00:[address] [facility] SARS-COV-2 COVID-19 MODERNA 12+ YRS VACCINE 2020-12-20 00:00:[address] [facility] SARS-COV-2 COVID-19 MODERNA 12+ YRS VACCINE 2020-11-24 00:00:[address] [facility] SARS-COV-2 COVID-19 MODERNA 12+ YRS VACCINE 2020-11-24 00:00:[address] [facility] SARS-COV-2 COVID-19 MODERNA 12+ YRS VACCINE 2020-11-24 00:00:[address] [facility] SARS-COV-2 COVID-19 MODERNA 12+ YRS VACCINE 2020-11-24 00:00:[address] [facility] SARS-COV-2 COVID-19 MODERNA 12+ YRS VACCINE 2020-11-24 00:00:[address] [facility] SARS-COV-2 COVID-19 MODERNA 12+ YRS VACCINE 2020-11-24 00:00:[address] [facility] SARS-COV-2 COVID-19 MODERNA 12+ YRS VACCINE 2020-11-24 00:00:[address] [facility] SARS-COV-2 COVID-19 MODERNA 12+ YRS VACCINE 2020-11-24 00:00:[address] [facility] Influenza Virus Vaccine 2019-08-10 00:00:[address] [facility] Influenza Virus Vaccine 2019-08-10 00:00:[address] [facility] Influenza Virus Vaccine 2019-08-10 00:00:[address] [facility] Influenza Virus Vaccine 2019-08-10 00:00:[address] [facility] Influenza Virus Vaccine 2019-08-10 00:00:[address] [facility] Influenza Virus Vaccine 2019-08-10 00:00:[address] [facility] Influenza Virus Vaccine 2019-08-10 00:00:[address] [facility] Influenza Virus Vaccine 2019-08-10 00:00:[address] [facility] Vital Signs Vital Name Observation Time Observation Value Comments S mumtazce Systolic blood pressure 2024-12-01 12:51:00 123 mm[Hg] [facility] Diastolic blood pressure 2024-12-01 12:51:00 76 mm[Hg] [facility] Heart rate 2024-12-01 12:51:00 65 /[facility] Body height 2024-12-01 12:51:00 182.9 cm [facility] Body weight 2024-12-01 12:51:00 71.895 kg [facility] BMI 2024-12-01 12:51:00 21.50 kg/m2 [facility] Oxygen saturation in Arterial blood by Pulse oximetry 2024-12-01 12:51:00 100 /min [facility] Systolic blood pressure 2024-08-11 21:23:00 134 mm[Hg] [facility] Diastolic blood pressure 2024-08-11 21:23:00 86 mm[Hg] [facility] Heart rate 2024-08-11 21:23:00 85 /min [facility] Respiratory rate 2024-08-11 21:23:00 18 /min [facility] Body height 2024-08-11 21:23:00 182.9 cm [facility] Body weight 2024-08-11 21:23:00 74.571 kg [facility] BMI 2024-08-11 21:23:00 22.30 kg/m2 [facility] Oxygen saturation in Arterial blood by Pulse oximetry 2024-08-11 21:23:00 99 /min [facility] Systolic blood pressure 2024-07-16 14:08:00 133 mm[Hg] [facility] Diastolic blood pressure 2024-07-16 14:08:00 96 mm[Hg] [facility] Heart rate 2024-07-16 14:08:00 74 /min [facility] Body temperature 2024-07-16 14:06:[address] [facility] Body height 2024-07-16 14:06:00 182.9 cm [facility] Body weight 2024-07-16 14:06:00 71.986 kg [facility] BMI 2024-07-16 14:06:00 21.52 kg/m2 [facility] Oxygen saturation in Arterial blood by Pulse oximetry 2024-07-16 14:06:00 99 /min [facility] Systolic blood pressure 2024-06-25 13:03:00 138 mm[Hg] [facility] Diastolic blood pressure 2024-06-25 13:03:00 90 mm[Hg] [facility] Heart rate 2024-06-25 13:03:00 73 /min [facility] Body temperature 2024-06-25 13:03:[address] [facility] Respiratory rate 2024-06-25 13:03:00 20 /min [facility] Body height 2024-06-25 13:03:00 182.9 cm [facility] Body weight 2024-06-25 13:03:00 71.215 kg [facility] BMI 2024-06-25 13:03:00 21.29 kg/m2 [facility] Oxygen saturation in Arterial blood by Pulse oximetry 2024-06-25 13:03:00 98 /min [facility] Systolic blood pressure 2024-06-11 20:57:00 122 mm[Hg] [facility] Diastolic blood pressure 2024-06-11 20:57:00 80 mm[Hg] [facility] Heart rate 2024-06-11 20:57:00 74 /min [facility] Body height 2024-06-11 20:57:00 182.9 cm [facility] Body weight 2024-06-11 20:57:00 73.936 kg [facility] BMI 2024-06-11 20:57:00 22.11 kg/m2 [facility] Oxygen saturation in Arterial blood by Pulse oximetry 2024-06-11 20:57:00 97 /min [facility] Systolic blood pressure 2023-10-17 14:08:00 109 mm[Hg] [facility] Diastolic blood pressure 2023-10-17 14:08:00 69 mm[Hg] [facility] Heart rate 2023-10-17 14:08:00 61 /min [facility] Body height 2023-10-17 14:08:00 182.9 cm [facility] Body weight 2023-10-17 14:08:00 70.262 kg [facility] BMI 2023-10-17 14:08:00 21.01 kg/m2 [facility] Systolic blood pressure 2022-06-15 14:28:32 131 mm[Hg] [facility] Diastolic blood pressure 2022-06-15 14:28:32 77 mm[Hg] [facility] Heart rate 2022-06-15 14:28:32 94 /min [facility] Body temperature 2022-06-15 14:28:[address] [facility] Respiratory rate 2022-06-15 14:28:32 18 /min [facility] Body height 2022-06-15 14:01:00 182.9 cm [facility] Body weight 2022-06-15 14:01:00 72.576 kg [facility] BMI 2022-06-15 14:01:00 21.70 kg/m2 [facility] Oxygen saturation in Arterial blood by Pulse oximetry 2022-06-15 14:01:00 100 /min [facility] Systolic blood pressure 2022-05-29 13:04:00 114 mm[Hg] [facility] Diastolic blood pressure 2022-05-29 13:04:00 72 mm[Hg] [facility] Heart rate 2022-05-29 13:04:00 86 /min [facility] Body temperature 2022-05-29 13:04:[address] [facility] Body height 2022-05-29 13:04:00 182.9 cm [facility] Body weight 2022-05-29 13:04:00 72.666 kg [facility] BMI 2022-05-29 13:04:00 21.73 kg/m2 [facility] Oxygen saturation in Arterial blood by Pulse oximetry 2022-05-29 13:04:00 99 /min [facility] Systolic blood pressure 2024-08-11 21:23:00 134 mm[Hg] [facility] Diastolic blood pressure 2024-08-11 21:23:00 86 mm[Hg] [facility] Heart rate 2024-08-11 21:23:00 85 /min [facility] Respiratory rate 2024-08-11 21:23:00 18 /min [facility] Body height 2024-08-11 21:23:00 182.9 cm [facility] Body weight 2024-08-11 21:23:00 74.571 kg [facility] BMI 2024-08-11 21:23:00 22.30 kg/m2 [facility] Oxygen saturation in Arterial blood by Pulse oximetry 2024-08-11 21:23:00 99 /min [facility] Body temperature 2024-07-16 14:06:[address] [facility] Systolic blood pressure 2022-06-15 14:28:32 131 mm[Hg] [facility] Diastolic blood pressure 2022-06-15 14:28:32 77 mm[Hg] [facility] Heart rate 2022-06-15 14:28:32 94 /min Un[facility] Body temperature 2022-06-15 14:28:[address] [facility] Respiratory rate 2022-06-15 14:28:32 18 /min [facility] Body height 2022-06-15 14:01:00 182.9 cm [facility] Body weight 2022-06-15 14:01:00 [facility]576 [facility] BMI 2022-06-15 14:01:00 21.70 kg/m2 [facility] Oxygen saturation in Arterial blood by Pulse oximetry 2022-06-15 14:01:00 100 /min Eunice o [facility] Procedures Procedure Date / Time Performed Performing Clinician Source COMP. METABOLIC PANEL (03635) 2024-12-07 14:09:[address] [facility] CBC WITH DIFF 2024-12-07 14:09:00 Alicia Yousif [facility] PNEUMOCOCCAL 20 CONJUGATE (PREVNAR 20) VACCINE 2024-12-01 12:58:[address] [facility] VENOUS REFLUX DUPLEX BILATERAL - BY VASCULAR LAB 2024-07-26 14:57:00 Becky [facility] VENOUS REFLUX DUPLEX BILATERAL - BY VASCULAR LAB 2024-07-26 14:57:00 Becky [facility] LAB COLOGUARD COLON CANCER SCREEN 2024-07-23 13:00:[address] [facility] FLU VACC([id number]),65+YR,0.5 ML,IM,ADJUVANTED,TIV(FLUA D) 2024-06-11 21:05:[address] [facility] NM BRAIN SPECT (DATSCAN) 2023-11-04 19:30:[address] [facility] NM BRAIN SPECT (DATSCAN) 2023-11-04 19:30:[address] [facility] NM BRAIN SPECT (DATSCAN) 2023-11-04 19:30:[address] [facility] XR FOOT 3+ VW RIGHT 2022-06-15 14:34:[address] [facility] XR FOOT 3+ VW RIGHT 2022-06-15 14:34:[address] [facility] NOTICE OF PRIVACY PRACTICES 2022-06-15 13:57:42 Doctor Unassigned, [place] [facility] NOTICE OF PRIVACY PRACTICES 2022-06-15 13:57:42 Doctor Unassigned, [place] [facility] CONSENT/REFUSAL FOR DIAGNOSIS AND TREATMENT 2022-06-15 13:53:21 Doctor Unassigned, [place] [facility] CONSENT/REFUSAL FOR DIAGNOSIS AND TREATMENT 2022-06-15 13:53:21 Doctor Unassigned, [place] [facility] AGREEMENTS AUTHORIZATIONS AND IRREVOCABLE ASSIGNMENTS (FORM 2001) 2022-06-15 05:01:00 Doctor Unassigned, [place] [facility] CONSENT/REFUSAL FOR DIAGNOSIS AND TREATMENT 2022-04-18 12:56:33 Doctor Unassigned, [place] [facility] ASSIGNMENT OF BENEFITS 2022-04-18 12:56:14 Shoaib r Unassigned, [place] [facility] FECAL IMMUNOCHEMICAL TEST 2019-05-19 12:00:[address] [facility] HCV ANTIBODY 2019-05-11 19:25:00 Wilfrido Mustafa [facility] Encounters Start Date/Time End Date/Time Encounter Type Admission Type Attending [facility] Facility Care Department Encounter ID Source 2025-04-21 00:00:00 2025-04-21 09:47:22 Telephone Ruben Niya Lee [facility] MEDICAL OFFICE BUILDING 1.2.840.114 350.1.13.10 4.2.7.2.686 [id number] [facility] 2025-04-16 00:00:00 2025-04-18 09:44:50 Telephone Ruben Niya A [facility] MEDICAL OFFICE BUILDING 1.2.840.114 350.1.13.10 4.2.7.2.686 [id number] [facility] 2025-04-15 00:00:00 2025-04-16 14:31:47 Telephone Ruben Niya A [facility] MEDICAL OFFICE BUILDING 1.2.840.114 350.1.13.10 4.2.7.2.686 [id number] [facility] 2025-04-12 00:00:00 2025-04-15 15:58:30 Telephone Niya Miranda [facility] OFF[facility] BU[facility] 1.2.840.114 350.1.13.10 4.2.7.2.686 [id number] [facility] 2025-04-06 11:00:00 2025-04-06 11:00:00 Outpatient NIYA LOPEZ [facility] [id number] [facility] 2025-04-01 13:00:00 2025-04-01 13:00:00 Outpatient ASHLEY LOPEZLIE [facility] [id number] [facility] 2025-03-29 00:00:00 2025-03-30 11:29:27 Telephone Ni[facility] 1.2.840.114 350.1.13.10 4.2.7.2.686 [id number] [facility] 2024-12-16 00:00:00 2024-12-16 00:00:00 Outpatient Ana M RUBENNIYA [facility] [id number] [facility] 2024-12-16 00:00:00 2024-12-16 00:00:00 Outpatient Ana M NARAYANANRUBENNIYA [facility] [id number] [facility] 2024-12-07 09:15:00 2024-12-07 09:30:00 Ui Ux Developer Visit Willow, Ad[facility] Lab Main Lacey Pérez, Samuel Lab Main [facility] 1.2.840.114 350.1.13.10 4.2.7.2.686 [id number] [facility] 2024-12-07 09:15:00 2024-12-07 09:15:00 Outpatient LACEY LIZARRAGA [facility] [id number] [facility] 2024-12-01 07:30:00 2024-12-01 08:09:52 Outpatient R RUBEN NIYA [facility] [id number] [facility] 2024-12-01 07:30:00 2024-12-01 08:09:52 Office Visit Ruben, Niya Lee [facility] MEDICAL OFFICE BUILDING 1.2.840.114 350.1.13.10 4.2.7.2.686 [id number] [facility] 2024-10-22 08:00:00 2024-10-22 08:00:00 Outpatient FABIOLA PERAZA ERIC [facility] [id number] [facility] 2024-08-11 15:30:00 2024-08-11 16:20:01 Office Visit Nas Delgado 1.2.840.1 52562.1.1 3.104.2.7 .3.988436 .8 [id number] [facility] 2024-08-11 07:00:00 2024-08-11 07:30:00 Office Visit Ashley Mirandaliclint Lee 1.2.840.1 72906.1.1 3.104.2.7 .3.651056 .8 [id number] [facility] 2024-08-11 07:00:00 2024-08-11 07:00:00 Outpatient R NIYA MIRANDA [facility] [id number] [facility] 2024-08-11 00:00:00 2024-08-11 00:00:00 Travel 1.2.840.1 68910.1.1 3.104.2.7 .3.564051 .8 1.2.840.114 350.1.13.10 4.2.7.3.698 084.8 [id number] [facility] 2024-07-26 08:00:00 2024-07-26 23:59:00 Outpatient R FERCHO LANG [facility] [id number] [facility] 2024-07-26 08:00:00 2024-07-26 23:59:00 Hospital Encounter Fercho Lang 1.2.840.1 67732.1.1 3.104.2.7 .3.775197 .8 [id number] [facility] 2024-07-26 00:00:00 2024-07-26 00:00:00 Travel 1.2.840.1 21767.1.1 3.104.2.7 .3.366990 .8 1.2.840.114 350.1.13.10 4.2.7.3.698 084.8 [id number] [facility] 2024-07-22 15:30:00 2024-07-22 15:30:00 Outpatient NIYA LOPEZ [facility] [id number] [facility] 2024-07-16 08:00:00 2024-07-16 08:34:50 Outpatient FABIOLA PERAZA ERIC [facility] [id number] [facility] 2024-07-16 08:00:00 2024-07-16 08:34:50 Office Visit Fabiola Key [facility] 1.2.840.114 350.1.13.10 4.2.7.2.686 [id number] [facility] 2024-07-09 08:00:00 2024-07-09 08:00:00 Outpatient FERCHO AUSTIN [facility] [id number] [facility] 2024-07-08 00:00:00 2024-07-08 15:28:27 Letter (Out) [facility] [place] ([place]) 1.2.840.114 350.1.13.10 4.2.7.2.686 [id number] [facility] 2024-07-05 08:00:00 2024-07-05 08:00:00 Outpatient FERCHO AUSTIN [facility] [id number] [facility] 2024-06-25 08:00:00 2024-06-25 08:38:34 Outpatient R FERCHO LANG [facility] [id number] [facility] 2024-06-25 08:00:00 2024-06-25 08:38:34 [facility] 1..840.114 350.1.13.10 4.2.7.2.686 [id number] [facility] 2024-06-11 16:00:00 2024-06-11 16:17:34 Outpatient R NIYA MIRANDA [facility] [id number] [facility] 2024-06-11 16:00:00 2024-06-11 16:17:34 Office Visit Niya Miranda [facility] MEDICAL OFFICE BUILDING 1..840.114 350.1.13.10 4.2.7.2.686 [id number] [facility] 2024-02-06 14:20:00 2024-02-06 14:20:00 Outpatient R CHAD MENA HOWARD [facility] [id number] [facility] 2023-12-30 00:00:00 2023-12-30 00:00:00 Telephone Chad Mena [facility] 1..840.114 350.1.13.10 4.2.7.2.686 [id number] [facility] 2023-11-04 07:43:04 2023-11-04 23:59:00 Hospital Encounter Chad Mena [facility] 1..840.114 350.1.13.10 4.2.7.2.686 [id number] [facility] 2023-11-04 07:42:54 2023-11-04 07:42:54 Hospital Encounter Chad Mena [facility] 1.840.114 350.1.13.10 4.2.7.2.686 [id number] [facility] 2023-11-04 07:42:44 2023-11-04 07:42:44 Outpatient R CHAD MENAOCHClint CHAD [facility] [id number] [facility] 2023-11-04 07:42:44 2023-11-04 07:42:44 Hospital Encounter Chad Mena [facility] 1.840.114 350.1.13.10 4.2.7.2.686 [id number] [facility] 2023-10-17 08:00:00 2023-10-17 09:36:18 Outpatient Ana M TRINA CHAD OLIVARESECHAD [facility] [id number] [facility] 2023-10-17 08:00:00 2023-10-17 09:36:18 Office Visit Chad Mena [facility] OFF[facility] BU[facility] 1.2.840.114 350.1.13.10 4.2.7.2.686 [id number] [facility] 2023-10-15 08:30:00 2023-10-15 08:30:00 Outpatient NIYA LOPEZ [facility] [id number] [facility] 2023-10-15 00:00:00 2023-10-15 00:00:00 Niya Rangel [facility] MEDICAL OFFICE BUILDING 1.2.840.114 350.1.13.10 4.2.7.2.686 [id number] [facility] 2023-10-01 07:30:00 2023-10-01 07:30:00 Outpatient NIYA LOPEZ [facility] [id number] [facility] 2023-09-30 09:20:00 2023-09-30 09:20:00 Outpatient R CHAD MENA HOWARD [facility] [id number] [facility] 2023-09-03 07:00:00 2023-09-03 07:30:00 Office Visit Ruben Niya Rosa [facility] MED[facility] OFF[facility] BUILDING 1.2.840.114 350.1.13.10 4.2.7.2.686 [id number] [facility] 2023-09-03 07:00:00 2023-09-03 07:00:00 Outpatient R NIYA MIRANDA [facility] [id number] [facility] 2023-09-03 00:00:00 2023-09-03 00:00:00 Telephone Niya Miranda [facility] MED[facility] OFF[facility] BUILD[facility] 1.2.840.114 350.1.13.10 4.2.7.2.686 [id number] [facility] 2023-08-08 00:00:00 2023-08-08 00:00:00 RefWilfrido Diane [facility] MED[facility] OFFICE BUILDING 1.2.840.114 350.1.13.10 4.2.7.2.686 [id number] [facility] 2023-01-10 13:50:24 2023-01-10 23:59:00 Outpatient R RADIOLOGY [facility] [id number] [facility] 2023-01-10 07:45:47 2023-01-10 23:59:00 Hospital Encounter Radiology [facility] 1.2.840.114 350.1.13.10 4.2.7.2.686 [id number] [facility] 2023-01-02 00:00:00 2023-01-02 00:00:00 Outpatient R RADIOLOGY [facility] [id number] [facility] 2022-11-28 07:00:00 2022-11-28 07:00:00 Outpatient R RUBENNIYA [facility] [id number] [facility] 2022-11-22 07:00:00 2022-11-22 07:00:00 Outpatient R NIYA MIRANDA [facility] [id number] [facility] 2022-11-13 12:30:00 2022-11-13 12:30:00 Outpatient R NIYA MIRANDA [facility] [id number] [facility] 2022-11-08 14:00:00 2022-11-08 14:00:00 Outpatient R YISSEL SALDIVAR S, YISSEL [facility] [id number] [facility] 2022-10-03 11:00:00 2022-10-03 11:00:00 Outpatient R ALPHONSO SYISSEL S, YISSEL [facility] [id number] [facility] 2022-06-25 08:00:00 2022-06-25 08:33:41 Outpatient R CHAD MENA HOWARD [facility] [id number] [facility] 2022-06-25 08:00:00 2022-06-25 08:33:41 Office Visit Chad Mena [facility] MEDICAL OFFICE BUILDING 1.2.840.114 350.1.13.10 4.2.7.2.686 [id number] [facility] 2022-06-25 00:00:00 2022-06-25 00:00:00 Travel 1.2.840.1 39079.1.1 3.104.2.7 .3.006807 .8 1.2.840.114 350.1.13.10 4.2.7.3.698 084.8 [id number] [facility] 2022-06-15 09:12:00 2022-06-15 11:04:00 Emergency X KOFI YANG [facility] ERT [id number] [facility] 2022-06-15 09:12:00 2022-06-15 11:04:00 Emergency Kofi Yang S 1.2.840.1 25183.1.1 3.104.2.7 .3.738162 .8 [id number] [facility] 2022-06-15 00:00:00 2022-06-15 00:00:00 Orders Only Doctor Unassigned, [place] 1.2.840.1 47405.1.1 3.104.2.7 .3.858306 .8 [id number] [facility] 2022-06-15 00:00:00 2022-06-15 00:00:00 Travel 1.2.840.1 94397.1.1 3.104.2.7 .3.265174 .8 1.2.840.114 350.1.13.10 4.2.7.3.698 084.8 [id number] [facility] 2022-05-30 00:00:00 2022-05-30 00:00:00 Telephone Niya Miranda 1.2.840.1 72393.1.1 3.104.2.7 .3.011647 .8 [id number] [facility] 2022-05-29 08:00:00 2022-05-29 10:20:35 Office Visit Niya Miranda 1.2.840.1 19932.1.1 3.104.2.7 .3.634618 .8 [id number] [facility] 2022-05-29 08:00:00 2022-05-29 08:00:00 Outpatient R NIYA MIRANDA [facility] [id number] [facility] 2022-05-29 00:00:00 2022-05-29 00:00:00 Travel 1.2.840.1 80691.1.1 3.104.2.7 .3.962832 .8 1.2.840.114 350.1.13.10 4.2.7.3.698 084.8 [id number] [facility] 2022-05-22 00:00:00 2022-05-22 00:00:00 Travel 1.2.840.1 11360.1.1 3.104.2.7 .3.628560 .8 1.2.840.114 350.1.13.10 4.2.7.3.698 084.8 [id number] [facility] 2022-05-16 07:00:00 2022-05-16 07:30:00 Office Visit Niya Miranda 1.2.840.1 96933.1.1 3.104.2.7 .3.040128 .8 [id number] [facility] 2022-05-16 07:00:00 2022-05-16 07:00:00 Outpatient R NIYA MIRANDA [facility] [id number] [facility] 2022-05-16 07:00:00 2022-05-16 07:00:00 Outpatient R NIYA MIRANDA [facility] [id number] [facility] 2022-05-16 00:00:00 2022-05-16 00:00:00 Travel 1.2.840.1 43755.1.1 3.104.2.7 .3.695928 .8 1.2.840.114 350.1.13.10 4.2.7.3.698 084.8 [id number] [facility] 2022-05-02 00:00:00 2022-05-02 00:00:00 Telephone Niya Miranda 1.2.840.1 89071.1.1 3.104.2.7 .3.680441 .8 [id number] [facility] 2022-04-18 08:00:00 2022-04-18 08:30:00 Office Visit Niya Miranda 1.2.840.1 04847.1.1 3.104.2.7 .3.604390 .8 [id number] [facility] 2022-04-18 08:00:00 2022-04-18 08:00:00 Outpatient R ASHLEY MIRANDALIE [facility] [id number] [facility] 2022-04-18 08:00:00 2022-04-18 08:00:00 Outpatient R NIYA MIRANDA [facility] [id number] [facility] 2022-04-18 08:00:00 2022-04-18 08:00:00 Outpatient R NIYA MIRANDA [facility] [id number] [facility] 2022-04-18 00:00:00 2022-04-18 00:00:00 Travel 1.2.840.1 98558.1.1 3.104.2.7 .3.271868 .8 1..840.114 350.1.13.10 4.2.7.3.698 084.8 [id number] [facility] 2022-04-18 00:00:00 2022-04-18 00:00:00 Orders Only Doctor Unassigned, [place] 1.2.840.1 19119.1.1 3.104.2.7 .3.031189 .8 [id number] [facility] 2022-02-25 08:00:00 2022-02-25 08:00:00 Outpatient CHAD JOHNSON HOWARD [facility] [id number] [facility] 2021-12-03 00:00:00 2021-12-03 00:00:00 Case Management Wilfrido Mustafa [facility] OFF[facility] 1..840.114 350.1.13.10 4.2.7.2.686 [id number] [facility] 2021-11-29 09:15:00 2021-11-29 09:30:56 Outpatient R WILFRIDO MUSTAFA [facility] [id number] [facility] 2021-11-29 09:15:00 2021-11-29 09:30:00 Ui Ux Developer Visit Lab, Marely Greyful A [facility] ANGLEHANDY BERUMEN?YOL[facility] MEDICAL OFFICE BUILDING 1.2.840.114 350.1.13.10 4.2.7.2.686 [id number] [facility] 2021-11-29 00:00:00 2021-11-29 00:00:00 Orders Only Doctor Unassigned, [place] [facility] 1.2840.114 350.1.13.10 4.2.7.2.686 [id number] [facility] 2021-11-26 09:30:00 2021-11-26 09:45:00 Ui Ux Developer Visit Lab, Lance Bosch Wilfrido Mustafa [facility] ANGLEHANDY BERUMEN?[facility] MEDICAL OFFICE BUILDING 1.2840.114 350.1.13.10 4.2.7.2.686 [id number] [facility] 2021-11-26 08:30:00 2021-11-26 09:30:48 Office Visit Wilfrido Mustafa [facility] ANGLEHANDY BERUMEN?YOLIS [facility] MEDICAL OFFICE BUILDING 1.2.840.114 350.1.13.10 4.2.7.2.686 [id number] [facility] 2021-11-26 09:30:00 2021-11-26 09:30:00 Outpatient R WILFRIDO MUSTAFA [facility] [id number] [facility] 2021-06-20 00:00:00 2021-06-20 00:00:00 Telephone Wilfrido Mustafa [facility] Health [place] [facility] Medical Office Building 1.2.840.114 350.1.13.10 4.2.7.2.686 [id number] [facility] 2021-06-18 08:00:00 2021-06-18 08:00:00 Outpatient CHAD JOHNSON HOWARD [facility] [id number] [facility] 2021-06-11 08:00:00 2021-06-11 08:00:00 Outpatient CHAD JOHNSON HOWARD [facility] [id number] [facility] 2021-05-30 00:00:00 2021-05-30 00:00:00 Case Management Asia Castillo Jessie 1..840.114 350.1.13.10 4.2.7.2.686 [id number] [facility] 2021-05-29 11:50:01 2021-05-29 12:28:44 Office Visit Wilfrido Mustafa [facility] Medical Office Building 1..840.114 350.1.13.10 4.2.7.2.686 [id number] [facility] 2021-05-29 11:45:00 2021-05-29 11:45:00 Outpatient WILFRIDO WADDELL [facility] [id number] [facility] 2021-05-29 00:00:00 2021-05-29 00:00:00 Orders Only Doctor Unassigned, [place] [facility] 1..840.114 350.1.13.10 4.2.7.2.686 [id number] [facility] 2021-05-28 08:15:00 2021-05-28 08:15:00 Outpatient WILFRIDO WADDELL [facility] [id number] [facility] 2021-04-19 10:30:00 2021-04-19 10:30:00 Outpatient DOROTA JAIME [facility] [id number] [facility] 2021-04-19 10:30:00 2021-04-19 10:30:00 Outpatient R DOROTA KIM [facility] [id number] [facility] 2021-03-22 10:30:00 2021-03-22 10:30:00 Outpatient R DOROTA KIM [facility] [id number] [facility] 2021-03-21 00:00:00 2021-03-21 00:00:00 Telephone Chad Mena [facility] Building 1.840.114 350.1.13.10 4.2.7.2.686 [id number] [facility] 2021-03-20 08:13:43 2021-03-20 23:59:00 Outpatient R MOONJANE MARIALIZETTEROBBIE [facility] [id number] [facility] 2021-03-20 08:13:43 2021-03-20 23:59:00 Outpatient R MOONJANE MARIALIZETTEROBBIE [facility] [id number] [facility] 2021-03-13 00:00:00 2021-03-13 00:00:00 Telephone [place] [facility] Office Building [facility] 1.84.114 350.1.13.10 4.2.7.2.686 [id number] [facility] 2021-03-06 00:00:00 2021-03-06 00:00:00 Telephone [place] mar[place] [facility] 1..840.114 350.1.13.10 4.2.7.2.686 [id number] [facility] 2021-02-20 07:58:01 2021-02-20 23:59:00 Hospital Encounter MoonJane mariaashley Rosa [facility] 1.2840.114 350.1.13.10 4.2.7.2.686 [id number] [facility] 2021-02-20 07:57:39 2021-02-20 07:57:39 Hospital Encounter Wilfrido Mustafa [facility] 1.2.840.114 350.1.13.10 4.2.7.2.686 [id number] [facility] 2021-02-20 07:57:25 2021-02-20 07:57:25 Hospital Encounter Chad Mena [facility] 1.2.840.114 350.1.13.10 4.2.7.2.686 [id number] [facility] 2021-02-20 00:00:00 2021-02-20 00:00:00 Outpatient CHAD JOHNSON HOWARD [facility] [id number] [facility] 2021-02-09 15:05:09 2021-02-09 16:01:10 Office Visit Trina Chad Maxwell [facility] 1.2840.114 350.1.13.10 4.2.7.2.686 [id number] [facility] 2021-02-09 15:00:00 2021-02-09 15:00:00 Outpatient CHAD JOHNSON HOWARD [facility] [id number] [facility] 2021-02-01 14:46:23 2021-02-01 15:01:23 Office Visit Riki Clay [facility] 1.2840.114 350.1.13.10 4.2.7.2.686 [id number] [facility] 2021-02-01 13:09:40 2021-02-01 14:06:24 Office Visit Dorota Kim [facility] 1.2840.114 350.1.13.10 4.2.7.2.686 [id number] [facility] 2021-02-01 13:00:00 2021-02-01 14:06:24 Outpatient R DOROTA KIM [facility] [id number] [facility] 2021-02-01 13:00:00 2021-02-01 14:06:24 Outpatient R DOROTA KIM [facility] [id number] [facility] 2021-01-30 13:47:15 2021-01-30 14:07:15 Ui Ux Developer Visit Lab, Adc Fam Pob I [place] marializetterobbie [facility] Office Building One 1.840.114 350.1.13.10 4.2.7.2.686 [id number] [facility] 2021-01-30 13:05:24 2021-01-30 13:48:52 Office Visit Moon Janeashley Lee [facility] Office Building One 1..114 350.1.13.10 4.2.7.2.686 [id number] [facility] 2021-01-30 13:00:00 2021-01-30 13:00:00 Outpatient R MOONJANE MARIALIZETTEROBBIE [facility] [id number] [facility] 2021-01-30 00:00:00 2021-01-30 00:00:00 Orders Only Doctor Unassigned, [place] [facility] 1..114 350.1.13.10 4.2.7.2.686 [id number] [facility] 2019-11-30 14:32:54 2019-11-30 15:59:36 Telemedici ne Visit Chad Mena [facility] Building 1..114 350.1.13.10 4.2.7.2.686 [id number] [facility] 2019-11-30 14:20:00 2019-11-30 14:20:00 Outpatient CHAD JOHNSON HOWARD [facility] [id number] [facility] 2019-05-21 13:00:00 2019-05-21 23:59:00 Hospital Encounter Conchis Fermin [facility] 1.2.840.114 350.1.13.10 4.2.7.2.686 [id number] [facility] 2019-05-21 00:00:00 2019-05-21 00:00:00 Orders Only Doctor Unassigned, [place] [facility] 1.2.840.114 350.1.13.10 4.2.7.2.686 [id number] [facility] 2019-05-19 09:31:39 2019-05-19 23:59:00 Hospital Encounter Americo [employer] 1.2.840.114 350.1.13.10 4.2.7.2.686 [id number] [facility] 2019-05-13 13:47:18 2019-05-13 14:15:56 Office Visit Conchis Fermin [facility] Office Building [facility] 1.2.840.114 350.1.13.10 4.2.7.2.686 [id number] [facility] 2019-05-11 13:33:26 2019-05-11 14:23:56 Office Visit Wilfrido Mustafa [facility] 1.2.840.114 350.1.13.10 4.2.7.2.686 [id number] [facility] 2019-05-11 00:00:00 2019-05-11 00:00:00 Orders Only Doctor Unassigned, [place] [facility] 1.2.840.114 350.1.13.10 4.2.7.2.686 [id number] [facility] 2019-05-05 12:29:22 2019-05-05 12:44:22 Ui [employer] Developer Visit Leroy, [facility] Peter Gax[facility]ola [facility] 1.2.840.114 350.1.13.10 4.2.7.2.686 [id number] [facility] 2019-05-05 00:00:00 2019-05-05 00:00:00 Orders Only Doctor Unassigned, [place] [facility] 1.2.840.114 350.1.13.10 4.2.7.2.686 [id number] [facility] 2019-04-27 13:33:26 2019-04-27 14:23:28 Office Visit Wilfrido Mustafa [facility] 1.2.840.114 350.1.13.10 4.2.7.2.686 [id number] [facility] 2019-04-27 00:00:00 2019-04-27 00:00:00 Orders Only Doctor Unassigned, [place] [facility] 1.2.840.114 350.1.13.10 4.2.7.2.686 [id number] [facility] Results Test Description Test Time Test Comments Results Result Co mments Source [facility] with [id number] 14:28:03* Test Item Value Reference Range Interpretation [...] 32.6 g/dL 31.2-35.0 RDW-SD (test code = 29250-1) 50.5 fL 38.5-51.6 RDW-CV (test code = 788-0) 12.8 % 12.1-15.4 PLT (test code = 777-3) 209 150-328 MPV (test code = 30177-0) 9.1 fL 9.8-13.0 L NRBC/100 WBC (test code = 5780807616) 0.0 0.0-10.0 NRBC x10^3 (test code = 7220801357) See_Comment [Automated messa ge] The system which generated this result transmitted reference range: 10*3/?L. The reference range was not used to interpret this result as normal/abnormal. GRAN MAT (NEUT) % (test code = 770-8) 71.3 % IMM GRAN % (test code = 5255196575) 0.20 % LYMPH % (test code = 736-9) 18.9 % MONO % (test code = 5905-5) 7.1 % EOS % (test code = 713-8) 0.9 % BASO % (test code = 706-2) 1.6 % GRAN MAT x10^3(ANC) (test code = 5407369907) 3.10 10*3/uL 1.99-6.95 IMM GRAN x10^3 (test code = 3740209408) 0.00-0.06 LYMPH x10^3 (test code = 731-0) 0.82 10*3/uL 1.09-3.23 L MONO x10^3 (test code = 742-7) 0.31 10*3/uL 0.36-1.02 L EOS x10^3 (test code = 711-2) 0.04 10*3/uL 0.06-0.53 L BASO x10^3 (test code = 704-7) 0.07 10*3/uL 0.01-0.09 Lab Interpretation (test code = 72308-4) Abnormal [facility] Notes Date/Time Note Provider Source 2025-04-21 09:59:11 Referral placed by provider today Pamella Jackson LVN [facility] 2025-04-21 09:46:29 Referral faxed, confirmation received. Patient notified Amiepanfilo Mcelroy MA 04/21/2025 9:47 AM Amie Mcelroy MALIKA [facility] 2025-04-21 09:09:36 Referral ordered [facility] 2025-04-21 08:59:16 Copied from [facility] #[id number]. Topic: Clinical - Referral >> Apr 21, 2025 8:52 AM Patient Crisis Therapist wrote: Pt called to provide referral information. Pt only had clinic phone number. I spoke to Kofi from Dr. Dumont's office and she provided the information. Please advise. Patient is requesting a referral to: Dept: Wound Care Reason for referral: open wound on right foot and ankle. Dx codes: E119 - right leg ulcer L97.918 CPT codes: 18837, 18242, 57342, 82043 Duration of problem: Internal / External referral: External Name of provider / location patient requesting: Ba Dumont/ [facility] [id number] Facility [address] [place] [address] [place] [address] Phone number: [phone] Fax number: [phone] Appt already scheduled?: No, needing referral first If yes, date of appt.: N/A Libia Ellis [facility] 2025-04-20 16:48:38 Does he need a referral to wound care? [facility] 2025-04-19 08:29:29 Patient notified. Patient states he went to [facility] ER a couple days ago and was prescribed an ABX. Patient is also going to make an appt with wound care today or tomorrow because the stitches came out and there is a hole. Has OV 04/27 w/ provider. Pamella Jackson [facility] 2025-04-18 14:02:25 ATC. LVM 2:02 PM 04/18/25 Pamella Jackson LVN Pamella Jackson CRIMINOLOGY TEACHER [facility] 2025-04-16 14:32:32 Please review and advise. TANIA 11/11/24 NOV 04/27/25 [facility] 2025-04-16 14:23:26 Copied from [facility] #[id number]. Topic: Clinical - Referral >> Apr 16, 2025 2:13 PM Patient Crisis Therapist wrote: Donovan Lamas is a 69 year old male Was seen in an outside ER because the stitches in his leg came undone, they advised that he see wound care. A referral is required for wound care, please advise Saran Sosa [facility] 2025-04-15 17:29:06 Received radiology services report from [facility], have placed in provider's box. Mei Norris [facility] 2025-04-15 15:57:13 I did not prescribe keflex nor refill them. If patient is having concerns/symptoms recommend he be evaluated. He can do this at [facility] urgent care since going into the weekend and my schedule is full today. [facility] 2025-04-15 07:03:32 Copied from CRM #[id number]. Topic: Clinical - Order >> Apr 15, 2025 7:01 AM Patient Crisis Therapist wrote: Donovan Lamas (69 year old male) is calling to request refill(s) for Cefalexin 250mg [facility] [address] [facility] [address] [facility] [address] Marii Castanon [facility] 2025-04-14 14:39:17 Please review and advise Donovan Lamas is a 69 year old male is requesting a referral to: Dept: Cardiology Reason for Referral: regular check up / 6m fu Duration of problem: X10 years Internal / External referral: External Name of provider / location patient requesting: [facility] Dr. Kanu Peguero MD Fax Number: n/a Appt already scheduled?: yes If yes, Date of Appt: 04/26 [facility] 2025-04-12 11:19:41 Copied from [facility] #[id number]. Topic: Clinical - Referral >> Apr 12, 2025 11:16 AM Patient Crisis Therapist wrote: Donovan Lamas is a 69 year old male is requesting a referral to: Dept: Cardiology Reason for Referral: regular check up / 6m fu Duration of problem: X10 years Internal / External referral: External Name of provider / location patient requesting: [facility] Dr. Kanu Peguero MD Fax Number: n/a Appt already scheduled?: yes If yes, Date of Appt: 04/26 Merry Schumacher [facility] 2025-03-30 10:49:27 Spoke with the patient and informed him that no other providers have morning availability. He confirmed that he is fine with keeping his current appointment. Encounter can be closed Hailey Elder [facility] 2025-03-30 08:53:00 Please schedule patient for appt. Pamella Jackson LVN [facility] 2025-03-29 12:48:11 Copied from [facility] #[id number]. Topic: Appointment - Schedule Appointment >> Mar 29, 2025 12:41 PM Patient Crisis Therapist wrote: Patient Donovan Lamas called to schedule a hospital follow up appointment. Wanting an early 7:00am or 7:30am appt due to his work schedule. Stated whatever is the first appt of the day, he is wanting it as early as possible. PT was seen at [facility] for a fridge falling on him. He has stitches in bottom right leg. Please call back and advise. Rosalba Najera [facility] 2024-12-07 09:15:00 Images from the original note were not included. Venipuncture collection performed by clean technique on the left anticubitus. Total of 1 attempts were made. Slight pressure and a bandage/dressing were applied to the site(s). The patient experienced no complications. The following specimens were processed according to instructions and sent to [facility] laboratories per lab order on 11/10/24: LT BLUE SST 1 RED LAV 1 PPT DK GREEN (LiHep) DK GREEN (SodH) LOPEZ DK BLUE (K2) DK BLUE (S) ACD Blood Culture NIPT/NTD T [facility] 2024-01-05 10:35:59 Called pt and let him know results per Dr. Mena. Pt verbalized understanding and requested a f/u appt to discuss other sx - balance and hallucinations. Let him know neurology would be able to discuss balance, however he should f/u with PCP for hallucinations. Assisted pt in scheduling f/u appt to discuss balance problems. Deloris Perez LVN [facility] 2024-01-05 07:51:05 FINDINGS: Normal radiotracer uptake is identified in the striata bilaterally. IMPRESSION Findings not suggestive of neurodegenerative disease / Parkinsonian syndrome. Test negative, doesn't mean patient couldn't have Parkinson's but is more helpful if test is positive. T [facility] 2023-12-30 15:01:34 Donovan Lamas is a 68 year old male Pt called because he said he had a brain scan done recently and would like a call back to go over the results. Please advise. Sylvester Chery [facility] 2023-10-17 16:11:21 Attempted to contact patient, no answer, left voicemail. TH AND FITNESS PROFESSOR Libia Massey RN [facility] 2023-10-16 10:44:47 Patient scheduled yesterday for an 8:30 am appointment. Looks like he signed in at 7:50 am and left (canceled sign in) at 8:20 am, 10 minutes before his 8:30 appointment. NIO WALSH-PHYSICIAN SEARCH DEVELOPER MIDLEVEL PROVIDER [facility] 2023-10-15 13:19:32 Please review NIO Blakely MA [facility] 2023-10-15 08:20:08 Donovan Lamas is a 68 year old male Pt called and stated that he was leaving due to the provider not seeing him in a timely manner. He is requesting a call from Ruben or he will be filing a complaint. Call him at [phone] NIO Ellis [facility] 2023-09-03 10:13:21 Please advise. NIO Flores RN [facility] 2023-09-03 08:47:27 Good morning, Are you able to assist with this please? Thank you, NIO De Leon [facility] 2023-09-03 08:10:59 Donovan Lamas is a 67 year old male Pt states he left his appointment at 7:05am because the Provider had not seen him. He wants a call back or message he states "Why she can't get to work on time" were his words [phone] (home) TH AND FITNESS PROFESSOR Marcelino Davis [facility]
[2025-04-21 11:07] LABS: Absolute Lymphocytes (CBC) 0.5 K/uL (0.7-4.9); Hematocrit 32.3 % (39.6-49.0); Hemoglobin 11.2 g/dL (13.6-17.9); MCH 36.5 pg (27.0-35.0); MCHC 34.7 g/dL (32.0-36.0); MCV 105.3 fL (80-100); MPV 6.9 fL (7.6-11.3); Nucleated RBC Absolute Count 0.0 (0-0); Nucleated Red Blood Cells % 0.0 % (0-0); RBC Red Blood Cell Count 3.07 M/uL (4.33-5.43); White Blood Count 4.80 thou/uL (4.3-10.9)
[2025-04-21 11:21] LABS: Anion Gap 8.3 mEq/L (5.0-15.0); BUN Blood Urea Nitrogen 19.0 mg/dL (7-18); Glucose Level 101.0 mg/dL (74-106); Potassium 4.3 mEq/L (3.5-5.1)
[2025-04-21] MEDS ORDERED: NA CHLORIDE 0.9% 250 ML ONE (11:25)
[2025-04-21] MEDS ORDERED: VANCOMYCIN 1 GM/VIAL ONE (11:25)
--- NOTE | 2025-04-21 11:35 | EDPHYS ---
Physician Documentation [facility] Name: Ag Lamas Age: 69 yrs Sex: Male : 1955 Arrival Date: 04/21/2025 Time: 10:15 Bed 16 Private MD: ED Physician Tamir Ross HPI: 04/21 10:55 This 69 yrs old Male presents to ER via Ambulatory with complaints of Wound Check - RT ms3 LEG. 10:55 69-year-old male with past medical history of cancer and hypertension presents to the [facility] emergency department for right leg wound. Patient sustained right leg laceration after refrigerator fell on his leg on the March 29, 2025. Patient return to the emergency department on April 11 for suture removal and the sutures were not ready to be removed at that time. Patient states on April 16 his wound opened. Patient has been attempting to get into wound care since his emergency department visit on April 16 and was unsuccessful. Patient states moderate discomfort to his right lower leg. Patient does note ants that on his wound this morning.. Historical: - Allergies: 10:24 No Known Allergies; aa5 - PMHx: 10:22 Cancer; Hypertension; aa5 - PSHx: 10:22 pacemaker; aa5 10:36 cataracts; aa5 - Immunization history:: Adult Immunizations unknown. - Infectious Disease History:: Denies. - Social history:: Smoking status: Patient denies any tobacco usage or history of. ROS: 10:55 Constitutional: Negative for fever, and chills. Cardiovascular: Negative for chest ms3 pain, and palpitations. Respiratory: Negative for shortness of breath, cough, wheezing, and pleuritic chest pain, Abdomen/GI: Negative for abdominal pain, nausea, vomiting, diarrhea, and constipation, MS/Extremity: Negative for injury and deformity, 10:55 Skin: Positive for ulceration, Exam: 10:55 Constitutional: This is a well developed, well nourished patient who is awake, alert, ms3 and in no acute distress. Head/Face: Normocephalic, atraumatic. Cardiovascular: Regular rate and rhythm with a normal S1 and S2. No gallops, murmurs, or rubs. Normal PMI, no JVD. No pulse deficits. Respiratory: Lungs have equal breath sounds bilaterally, clear to auscultation and percussion. No rales, rhonchi or wheezes noted. No increased work of breathing, no retractions or nasal flaring. Abdomen/GI: Soft, non-tender, with normal bowel sounds. No distension or tympany. No guarding or rebound. No evidence of tenderness throughout. 10:55 Skin: right lower leg open wound with surrounding erythema, right top of foot with ulceration, swelling, and erythema. Vital Signs: 10:23 BP 122 / 67; Pulse 76; Resp 17 S; Temp 98.4(O); Pulse Ox 100% on R/A; Weight 72.57 kg aa5 (R); Height 6 ft. 0 in. (R); 11:00 BP 120 / 63; Pulse 64; Resp 15; Pulse Ox 100% ; me1 12:00 BP 108 / 68; Pulse 54; Resp 15; Pulse Ox 100% ; me1 13:00 BP 120 / 69; Pulse 57; Resp 16; Pulse Ox 100% ; me1 14:00 BP 116 / 76; Pulse 53; Resp 14; Pulse Ox 100% ; me1 14:30 BP 117 / 70; Pulse 53; Resp 15; Pulse Ox 100% ; me1 10:23 Body Mass Index 21.70 (72.57 kg, 182.88 cm) aa5 MDM: 10:29 Medical Screening Exam initiated ms3 10:55 Differential diagnosis: cellulitis, osteo. ms3 11:35 Data reviewed: vital signs, nurses notes, lab test result(s), and as a result, I will ms3 admit patient. Consideration of Admission/Observation Patient was admitted/placed on observation. Management of patient was discussed with the following: Hospitalist: Dr Deshpande. I considered the following discharge prescriptions or medication management in the emergency department Medications were administered in the Emergency Department. See MAR. Counseling: I had a detailed discussion with the patient and/or guardian regarding the historical points, exam findings, and any diagnostic results supporting the discharge/admit diagnosis, lab results, the need for further work-up and treatment in the hospital. ED course: Discussed case with hospitalist and they understand agree with plan for no questions were answered. Discussed necessity for admission with patient and he understands agrees with plan.. 04/21 10:29 Order name: CBC with Diff; Complete Time: 11:13 ms3 04/21 10:29 Order name: BMP; Complete Time: 11:22 ms3 04/21 12:11 Order name: Basic Metabolic Panel EDMS 04/21 12:11 Order name: Basic Metabolic Panel EDMS 04/21 12:11 Order name: Basic Metabolic Panel EDMS 04/21 12:11 Order name: Basic Metabolic Panel EDMS 04/21 12:11 Order name: CBC with Automated Diff EDMS 04/21 12:11 Order name: CBC with Automated Diff EDMS 04/21 12:11 Order name: CBC with Automated Diff EDMS 04/21 12:11 Order name: CBC with Automated Diff EDMS 04/21 12:11 Order name: Protime (+INR) EDMS 04/21 12:11 Order name: Protime (+INR) EDMS 04/21 12:15 Order name: Blood Culture EDMS 04/21 10:29 Order name: Extremity Venous Uni Ltd US; Complete Time: 11:58 ms3 04/21 12:11 Order name: CONS Physician Consult EDMS Administered Medications: 11:31 Drug: vancoMYCIN IVPB 1 grams IVPB once over 2 hrs Route: IVPB; Infused Over: 2 hrs; me1 Site: right antecubital; 13:31 Follow up: Response: No adverse reaction; IV Status: Completed infusion me1 Disposition Summary: 04/21/25 11:35 Hospitalization Ordered Notes: Hospitalization Status: Inpatient Admission ms3 Provider: Nicholas Deshpande ms3 Location: Telemetry/MedSurg (Inpatient) ms3 Condition: Stable ms3 Problem: new ms3 Symptoms: are unchanged ms3 Bed/Room Type: Standard ms3 Room Assignment: 205(04/21/25 13:41) bc6 Diagnosis - Cellulitis of right lower limb ms3 - Wound infection ms3 Forms: - Medication Reconciliation Form ms3 - SBAR form ms3 - Leadership Thank You Letter ms3 Signatures: Dispatcher [employer] EDMS Ngozi Billingsley, RN RN aa5 Tamir Ross DO DO ms3 Sabrina Alcala bc6 Evangelina Crowley RN RN me1 Corrections: (The following items were deleted from the chart) 10:30 10:30 CBC+H.LAB.BRZ ordered. EDMS EDMS 10:30 10:30 BASIC METABOLIC PANEL+C.LAB.BRZ ordered. EDMS EDMS 10:30 10:30 Extremity Venous Uni Ltd+US.RAD.BRZ ordered. EDMS EDMS 13:41 11:35 ms3 bc6
--- NOTE | 2025-04-21 11:35 | ER ---
Nurse's Notes [facility] Name: Ag Lamas Age: 69 yrs Sex: Male : 1955 Arrival Date: 04/21/2025 Time: 10:15 Bed 16 Private MD: Diagnosis: Cellulitis of right lower limb;Wound infection Presentation: 04/21 10:23 Chief complaint: Patient states: wound to right leg, reports had sutures removed on aa5 04/16/25. Reports has been unable to follow-up with wound center. Coronavirus screen: At this time, the client does not indicate any symptoms associated with coronavirus-19. Ebola Screen: Patient denies travel to an Ebola-affected area in the 21 days before illness onset. Initial Sepsis Screen: Does the patient meet any 2 criteria? No. Patient's initial sepsis screen is negative. Does the patient have a suspected source of infection? No. Patient's initial sepsis screen is negative. Risk Assessment: Do you want to hurt yourself or someone else? Patient reports no desire to harm self or others. Onset of symptoms was April 21, 2025. 10:23 Method Of Arrival: Ambulatory aa5 10:23 Acuity: REMA 3 aa5 Historical: - Allergies: 10:24 No Known Allergies; aa5 - PMHx: 10:22 Cancer; Hypertension; aa5 - PSHx: 10:22 pacemaker; aa5 10:36 cataracts; aa5 - Immunization history:: Adult Immunizations unknown. - Infectious Disease History:: Denies. - Social history:: Smoking status: Patient denies any tobacco usage or history of. Screenin:40 [facility] ED Fall Risk Assessment (Adult) History of falling in the last 3 months, me1 including since admission No falls in past 3 months (0 pts) Confusion or Disorientation No (0 pts) Intoxicated or Sedated No (0 pts) Impaired Gait No (0 pts) Mobility Assist Device Used No (0 pt) Altered Elimination No (0 pt) Score/Fall Risk Level 0 - 2 = Low Risk Maintained a safe environment, Provided non-skid footwear, Hourly rounding (assess needs \T\ fall precautionary measures) done. Abuse screen: Denies threats or abuse. Nutritional screening: No deficits noted. Tuberculosis screening: No symptoms or risk factors identified. Assessment: 10:40 General: Appears in no apparent distress. unkempt, well developed, well nourished, me1 Behavior is calm, cooperative, appropriate for age, Reports wound to right leg, reports had sutures removed on 04/16/25. Reports has been unable to follow-up with wound center. Pain: Denies pain. Neuro: Level of Consciousness is awake, alert, obeys commands, Oriented to person, place, time, situation, Appropriate for age. Cardiovascular: Patient's skin is warm and dry. Respiratory: Airway is patent Respiratory effort is even, unlabored, Respiratory pattern is regular, symmetrical. GI: No signs and/or symptoms were reported involving the gastrointestinal system. : No signs and/or symptoms were reported regarding the genitourinary system. EENT: No signs and/or symptoms were reported regarding the EENT system. Derm: Wound noted right palomo and dorsum of right foot Wound is wounds. Musculoskeletal: Swelling present in right leg and left leg. Vital Signs: 10:23 BP 122 / 67; Pulse 76; Resp 17 S; Temp 98.4(O); Pulse Ox 100% on R/A; Weight 72.57 kg aa5 (R); Height 6 ft. 0 in. (R); 11:00 BP 120 / 63; Pulse 64; Resp 15; Pulse Ox 100% ; me1 12:00 BP 108 / 68; Pulse 54; Resp 15; Pulse Ox 100% ; me1 13:00 BP 120 / 69; Pulse 57; Resp 16; Pulse Ox 100% ; me1 14:00 BP 116 / 76; Pulse 53; Resp 14; Pulse Ox 100% ; me1 14:30 BP 117 / 70; Pulse 53; Resp 15; Pulse Ox 100% ; me1 10:23 Body Mass Index 21.70 (72.57 kg, 182.88 cm) aa5 ED Course: 10:18 Patient arrived in ED. cj3 10:21 Tamir Ross DO is Attending Physician. ms3 10:22 Arm band placed on. aa5 10:24 Triage completed. aa5 10:40 Patient has correct armband on for positive identification. Bed in low position. Call me1 light in reach. Side rails up X2. Provided Education on: POC. Verbalized understanding.. Client placed on continuous cardiac and pulse oximetry monitoring. NIBP monitoring applied. Pulse ox on. NIBP on. 10:40 No provider procedures requiring assistance completed. me1 10:41 Evangelina Crowley, RN is Primary Nurse. me1 10:54 BMP Sent. me1 10:54 CBC with Diff Sent. me1 10:54 Initial lab(s) drawn, by me, sent to lab. Inserted saline lock: 20 gauge in left me1 antecubital area, using aseptic technique. 11:21 Extremity Venous Uni Ltd US In Process Unspecified. EDMS 11:33 Nicholas Deshpande MD is Hospitalizing Provider. ms3 14:04 Patient admitted, IV remains in place. me1 Administered Medications: 11:31 Drug: vancoMYCIN IVPB 1 grams IVPB once over 2 hrs Route: IVPB; Infused Over: 2 hrs; me1 Site: right antecubital; 13:31 Follow up: Response: No adverse reaction; IV Status: Completed infusion me1 Medication: 10:40 VIS not applicable for this client. me1 Outcome: 11:35 Decision to Hospitalize by Provider. ms3 14:04 Admitted to Med/surg accompanied by [facility], via wheelchair, room 205, with chart, Report me1 called to faxed, receipt confirmed with Ana. 14:04 Condition: stable 14:04 Instructed on the need for admit, 14:50 Patient left the ED. me1 Signatures: Dispatcher [employer] Ngozi Campos, RN RN aa5 Tamir Ross, DO ms3 Evangelina Crowley, RN RN me1 Sarah Spears cj3 Corrections: (The following items were deleted from the chart) 10:41 10:23 Chief complaint: Patient states: wound to right leg, reports had sutures removed me1 on 04/16/25. Reports has been unable to follow-up with wound center. aa5 12:25 10:23 Chief complaint: Patient states: wound to right leg, reports had sutures removed me1 on 04/16/25. Reports has been unable to follow-up with wound center. me1
--- NOTE | 2025-04-21 11:38 | RAD REPORT ---
EXAM:Extremity Venous Uni Ltd HISTORY: Right leg pain TECHNIQUE: Sonographic evaluation right lower extremity performed.Grayscale, color and spectral ayan sis performed on all vessels COMPARISON: None. FINDINGS: Right common femoral, superficial femoral, greater saphenous, popliteal and posterior tibial veins ar e compressible and demonstrate augmentation. Doppler demonstrates good flow. IMPRESSION: No evidence of deep venous thrombosis involving the right lower extremity.
[2025-04-21] MEDS ORDERED: MORPHINE 2 MG/ML SYR IV PRN (11:58)
[2025-04-21] MEDS ORDERED: ONDANSETRON 4 MG/2 ML VIAL IV PRN (11:58)
[2025-04-21] MEDS: VANCOMYCIN 1 GM in NA CHLORIDE 0.9% 250 ML IVPB SCH (12:00)
--- NOTE | 2025-04-21 12:13 | P.HP ---
Patient History Date of Service: 04/21/25 History of Present Illness: 69-year-old male with a past medical history of presence of pacemaker, hypertension, presenting with right leg wound. He states a refrigerator fell on his leg on March 29 of this year. His wound was closed with sutures however his wound opened up again on April 16. He is unable to get into a wound care physician. He states he has had increasing pain in the right lower extremity. He denies fevers and chills. He took some [id number] pain medication with minimal relief. He rates the pain at a 8 out of 10. Allergies No Known Allergies Allergy (Unverified 07/16/17 09:13) Home Medications: Aspirin 81 mg PO DAILY 04/21/25 Cephalexin [Keflex] 500 mg PO TID 04/21/25 Digoxin [Lanoxin] 0.125 mg PO DAILY 04/21/25 Ferrous Sulfate [Iron] 142 mg PO DAILY 04/21/25 Hydrocodone 10/APAP 325 [[place] 10/325] 1 tab PO Q6H PRN 04/21/25 Ibuprofen [Motrin] 200 mg PO TID 04/21/25 Mecobalamin [B12 Active] 1,000 mcg PO DAILY 04/21/25 Sacubitril/Valsartan [Entresto 24 mg-26 mg Tablet] 24 - 26 mg PO BID 04/21/25 Smz./Tmp. [Bactrim Ds 800 MG/160 MG*] 160 - 800 mg PO BID 04/21/25 Review of Systems 10-point ROS is otherwise unremarkable Integumentary: Rash, Lesions Physical Examination - Physical Exam General: In no apparent distress HEENT: Atraumatic, Normocephalic Neck: Supple Cardiovascular: No edema Capillary refill: <2 Seconds Gastrointestinal: Normal bowel sounds Musculoskeletal: No clubbing Integumentary: Skin breakdown, Skin lesion, Erythema, Warmth Neurological: Normal speech - Studies Laboratory Data (last 24 hrs) 04/21/25 04/21/25 10:53 10:53 WBC 4.80 Hgb 11.2 L Hct 32.3 L Plt Count 220 Sodium 137 Potassium 4.3 BUN 19 H Creatinine 1.12 Glucose 101 Assessment and Plan - Plan Right leg cellulitis Right leg wound dehiscence Nonhealing wound Peripheral arterial disease Presence of cardiac pacemaker Hypertension Anemia Admit to floor N.p.o. at midnight for debridement in the a.m. Continue vancomycin and trend levels General Surgery consulted and appreciate help Pain control with IV more Obtain CRP, CBC, CMP Blood cultures pending Venous duplex of the lower extremity without any blood clot Follow-up with vascular specialist upon discharge - Advance Directives Does patient have a Living Will: No Does patient have a Durable POA for Healthcare: No
--- NOTE | 2025-04-21 13:46 | CON ---
Date of Consultation: 04/21/2025 Diagnosis: Cellulitis and necrotic wounds, right lower extremity. History Of Present Illness: This is a case of a 69-year-old patient who [facility] right leg wound dehiscence and cellulitis. Apparently, on March 29, he received a lacerat ion and repair after a refrigerator fell on his leg. He came for the suture removal more than 10 day s ago, but then the wound just dehisced. He was admitted to the hospital for wound debridement and a lso IV antibiotics. He is ambulating. He is saying that he is supposed to follow with the [facility], but he has not been able to follow in. Allergies: NONE. Surgical History: Pacemaker, cataract. Medical History: Hypertension. Social History: He does not smoke. He does not drink alcohol. Review of Systems: Chronic leg discomfort, nonhealing wounds, and chronic wounds. No calf tenderness. No fever. Redne ss over the right lower extremity. No nausea, vomiting, dysuria, hematuria, hematochezia, or melena. Ten points otherwise unremarkable. Physical Examination: Vital Signs: Reviewed. General: The patient is awake, alert. No distress. HEENT: Pupils are anicteric. Neck: Supple. Chest: Clear. Heart: S1, S2. Abdomen: Soft and depressible. Extremities: History of peripheral vascular disease with multiple bruises of the right lower extremi ty including toes, foot blisters that are partially broken, also dehiscence of the wound on the right anterior leg. Erythema present. No Homans signs. No calf tenderness. Dorsalis pedis pulses prese nt bilaterally are diminished. Laboratory Data: Blood work shows WBC count of 4.8, hemoglobin of 11.2, potassium 4.3, and creatinin e is 1.2. Venous Doppler of right lower extremity shows no evidence of deep vein thrombosis. Assessment: This is a 69-year-old patient with wound dehiscence, nonhealing wounds, chronic wounds, right lower extremity with cellulitis. The patient will be admitted to the hospital. IV antibiotics and then will take him to the OR for a wound debridement with benefits, alternatives, and risks incl uding, but not limited to infection, bleeding, damage to adjacent structures, anesthesia complication , nonhealing wounds, [place], and even . He also understands this may not relieve any symptoms. He might need more than one surgical intervention. He will understand that he will require wound care a s an outpatient. He was advised to see also his medical doctor and also a vascular service to rule o ut peripheral vascular disease as an outpatient. ZACHARY/CLAY Voice ID: [id number] Report ID: [id number]
[2025-04-21 15:40] VITALS: BMI 21.5
[2025-04-22] MEDS: VANCOMYCIN 1.25 GM in NA CHLORIDE 0.9% 250 ML IVPB SCH (00:40)
[2025-04-22 04:30] LABS: Absolute Lymphocytes (CBC) 0.7 K/uL (0.7-4.9); Hematocrit 28.9 % (39.6-49.0); Hemoglobin 10.2 g/dL (13.6-17.9); MCH 36.6 pg (27.0-35.0); MCHC 35.3 g/dL (32.0-36.0); MCV 103.8 fL (80-100); MPV 6.8 fL (7.6-11.3); Nucleated RBC Absolute Count 0.0 (0-0); Nucleated Red Blood Cells % 0.1 % (0-0); RBC Red Blood Cell Count 2.79 M/uL (4.33-5.43); White Blood Count 4.00 thou/uL (4.3-10.9)
[2025-04-22 04:37] LABS: PT Prothrombin Time 14.4 SECONDS (10-13.0); Protime INR 1.28
[2025-04-22 04:44] LABS: Anion Gap 6.9 mEq/L (5.0-15.0); BUN Blood Urea Nitrogen 19.0 mg/dL (7-18); Glucose Level 96.0 mg/dL (74-106); Potassium 3.9 mEq/L (3.5-5.1)
[2025-04-22] MEDS: Ringers Lactate 1,000 ML IV ONE (12:49)
[2025-04-22] MEDS ORDERED: LIDOCAINE 2% MPF 5 ML VIAL ONE (13:28)
[2025-04-22] MEDS ORDERED: FENTANYL CITR 100 MCG/2 ML ONE (13:28)
[2025-04-22] MEDS ORDERED: ONDANSETRON 4 MG/2 ML VIAL ONE (13:51)
[2025-04-22] MEDS ORDERED: EPHEDRINE SULF 50 MG/ML VIAL ONE (13:53)
[2025-04-22] MEDS: COLLAGENASE 30 GM OINTMENT TOP ONE (14:08)
--- NOTE | 2025-04-22 14:26 | P.BOP ---
Preoperative diagnosis: traumatic necrotic infected wounds to Right lower extremity Postoperative diagnosis: same Primary procedure: 1.Excisional debridement down to fascia necrotic wound right leg 5x4cm Secondary procedure: 2.Excisional debridement down to fascia necrotic wound right foot 6x5cm Estimated blood loss: <10cc Specimen: necrotic tissue, hematoma Anesthesia: General Complications: None Transferred to: Recovery Room Condition: Good
[2025-04-22] MEDS ORDERED: HYDROCODONE/APAP 5/325 MG TAB PO PRN (14:29)
[2025-04-22 14:37] VITALS: O2SAT 100
--- NOTE | 2025-04-22 14:46 | P.DS ---
Admission Date: 04/21/25 Discharge Date: 04/22/25 Disposition: ROUTINE DISCHARGE Brief History of Present Illness: 69-year-old male with a past medical history of pacemaker, hypertension, presented with right leg wound. He stated a refrigerator fell on his leg on March his wound was closed with sutures however it gaped. He also reported swelling of the affected right lower extremity, he denied any fever or chills. Patient was evaluated emergency department he had no sepsis, no fever, no leukocytosis. He was hospitalized for IV antibiotics and surgical evaluation. Hospital Course: Diagnosis Infected right lower extremity wound status postdebridement Patient admitted to the medical floor, seen by surgery Dr. Enriquez who performed debridement. Patient deemed stable for discharge by Dr. Enriquez. He was discharged with oral Augmentin and doxycycline and [place] as needed for pain. Patient instructed to follow-up with Dr. Enriquez in the wound care clinic as instructed by Dr. Enriquez. Wound to be dressed by wet-to-dry dressing followed by Santyl ointment. Patient made aware of the wound dressing instructions. Vital Signs/Physical Exam: Temp Pulse Resp BP Pulse Ox 97.3 F 72 16 102/60 98 04/22/25 14:20 04/22/25 14:31 04/22/25 14:31 04/22/25 14:31 04/22/25 12:00 General: Alert, In no apparent distress, Oriented x3 HEENT: Mucous membr. moist/pink, Sclerae nonicteric Neck: Supple, JVD not distended Respiratory: Clear to auscultation bilaterally, Normal air movement Cardiovascular: No edema, Regular rate/rhythm, Normal S1 S2 Gastrointestinal: Normal bowel sounds, Soft and benign, Non-distended Musculoskeletal: No swelling Integumentary: Other (Right lower extremity anterior ankle clean wound, clean wound on the dorsum of the right foot) Neurological: Normal strength at 5/5 x4 extr, Cranial nerves 3-12 intact Laboratory Data at Discharge: WBC 4.00 thou/uL (4.3-10.9) L 04/22/25 04:11 Hgb 10.2 g/dL (13.6-17.9) L D 04/22/25 04:11 Hct 28.9 % (39.6-49.0) L 04/22/25 04:11 Plt Count 179 thou/uL (152-406) 04/22/25 04:11 PT 14.4 SECONDS (10-13.0) H 04/22/25 04:11 INR 1.28 04/22/25 04:11 Sodium 139 mEq/L (136-145) 04/22/25 04:11 Potassium 3.9 mEq/L (3.5-5.1) 04/22/25 04:11 BUN 19 mg/dL (7-18) H 04/22/25 04:11 Creatinine 1.02 mg/dL (0.70-1.30) 04/22/25 04:11 Glucose 96 mg/dL (74-106) 04/22/25 04:11 Home Medications: Aspirin 81 mg PO DAILY 04/21/25 Digoxin [Lanoxin*] 0.125 mg PO DAILY 04/21/25 Ferrous Sulfate [Iron] 142 mg PO DAILY 04/21/25 Ibuprofen [Motrin*] 200 mg PO TID 04/21/25 Mecobalamin [B12 Active] 1,000 mcg PO DAILY 04/21/25 Sacubitril/Valsartan [Entresto 24 mg-26 mg Tablet] 24 - 26 mg PO BID 04/21/25 Amox/Clavulanate [Augmentin 875-125 Tab] 875 mg PO BID #14 tab 04/22/25 Collagenase [Santyl Ointment] 1 appl TOP DAILY #1 tube 04/22/25 Doxycycline Hyclate 100 mg PO BID #14 cap 04/22/25 Hydrocodone 5/APAP 325 [[place] 5/325*] 1 tab PO Q4H PRN #12 tab 04/22/25 New Medications: Amox/Clavulanate [Augmentin 875-125 Tab] 875 mg PO BID #14 tab Doxycycline Hyclate 100 mg PO BID #14 cap Hydrocodone 5/APAP 325 [[place] 5/325*] 1 tab PO Q4H PRN #12 tab PRN Reason: Pain Scale 5-7 (Moderate) Collagenase [Santyl Ointment] 1 appl TOP DAILY #1 tube Physician Discharge Instructions: Wound care: Wet-to-dry dressing and apply Santyl ointment. Diet: AHA Activity: Ad crystal Followup: Domingo Enriquez MD [ACTIVE - CAN ADMIT] - (Please follow up on 04/26/2025 at the wound care clinic.) NONE,NONE [Primary Care Provider] - Time spent managing pt's care (in minutes): 34
[2025-04-22 14:54] VITALS: BP 109/63; TEMP 97.1
--- NOTE | 2025-04-22 15:31 | OP ---
Date of Procedure: 04/22/2025 Surgeon: Domingo Enriquez MD Preoperative Diagnoses: Traumatic necrotic infected wounds to right lower extremity, status post tra reinaldo. Postoperative Diagnosis: Traumatic necrotic infected wounds to right lower extremity, status post tr auma. Procedures: 1. Excisional debridement down to fascia, necrotic wound, right leg, 5 x 4 cm. 2. Excisional debridement down to fascia, necrotic wound, right foot, 6 x 5 cm. Estimated Blood Loss: Less than 10 cc. Specimen: Necrotic tissue. Old clotted blood. Findings: Patient with two traumatic injuries. There were two components of it, the laceration and the crush injury destroying the fat and in between, going all the way down to fascia. So, this was d ebrided. There was also old clot present in that area, probably from the trauma itself. Anesthesia: General plus local. Complications: None. Packing: Santyl, wet-to-dry. Indication: This is a case of a 69-year-old patient who unfortunately was carrying a fridge. Fridge fell on his foot. He came to the ER and had closure of his lacerations, came back a few days later, got the stitches out, the area dehisced, and a surgical consult was obtained since the patient also erythematous. The patient feels better. He is walking. It is just basically the wounds look necrot ic and somebody with peripheral vascular disease, it is not uncommon. So we are going to try to uma ve the necrotic tissue from that area. So, the benefits, alternatives, and risks of debridement of n ecrotic tissue was fully explained, which include, but not limited to, infection, bleeding, damage to adjacent structures, anesthesia complication, nonhealing wound, [place], and even . He also underst ands this may not relieve any symptoms, he might need more than one surgical intervention. He unders tood, signed a consent. He also understands as of postop care, he need to come back to the [facility], so I will be going to be there next Friday, so we can continue the care of this leg. He understood. Description Of Procedure: The area of concern was marked by me and the patient in the holding room. The patient was brought to the operating room, placed in supine position. Anesthesia was induced wi thout complication. Right leg was prepped and draped in sterile fashion. Local anesthesia was appli ed to each area followed by sharp incision of the necrotic tissue with a sharp knife. Those two woun ds goes all the way down to fascia of the muscle. It does not penetrate into the damaged muscle, at least clinically I do not see it. The fascia was somehow affected, so it was removed partially. Als o, old blood present in that area, large hematoma, and also the necrotic tissue present. After that, we irrigated the area on both sides and covered with the Santyl dressings. Patient tolerated the pr ocedure well. Patient sent to recovery in stable condition. ZACHARY/CLAY Voice ID: [id number] Report ID: [id number]
== END 2025-04-22 17:44 | disposition home or self-care (01) | DRG 264 ==
LOC: ER 10:15 → ERHOLD 11:58 → UNDOADMIN 12:28 → ERHOLD 14:07 → 2ND 14:07
PROVIDERS: ADMIT Family Medicine; ATTEND Internal Medicine
PROC: 0JBQ0ZZ Excision of Right Foot Subcutaneous Tissue and Fascia, Open Approach (ICD-10-PCS; 2025-04-22)
PROC: 0JBN0ZZ Excision of Right Lower Leg Subcutaneous Tissue and Fascia, Open Approach (ICD-10-PCS; principal; 2025-04-22 14:15)
DX: I96 Gangrene, not elsewhere classified (principal); T81.30XA Disruption of wound, unspecified, initial encounter; L03.115 Cellulitis of right lower limb; I10 Essential (primary) hypertension; D64.9 Anemia, unspecified; S80.11XA Contusion of right lower leg, initial encounter; S81.811A Laceration without foreign body, right lower leg, initial encounter; Z95.0 Presence of cardiac pacemaker; Z79.82 Long term (current) use of aspirin; Z79.899 Other long term (current) drug therapy
CPT/HCPCS: 36415; 80048; 85025; 85610; 87040; 88304; 93971; 96365; 96366; 99285; J1100; J2003; J2405; J2704; J3010; J3370; J3590; J7050; J7120